=== PATIENT | female | born 1965 | race Two or more races ===

== ENCOUNTER 2023-09-29 18:44 | Emergency (ER) | payer MEDICAID, OTHER ==
[~2023-09-29] VITALS: Ht 152.4 cm; Wt 98.3 kg
[2023-09-29 19:04] VITALS: BP 104/66; PULSE 86; RESP 18; TEMP 98.9; O2SAT 98
[2023-09-29] MEDS: KETOROLAC TROMETH 60MG/2ML VIAL IM ONE (20:07)
== END 2023-09-29 21:58 | disposition home or self-care (01) ==
LOC: ER 18:48
DX: S13.4XXA Sprain of ligaments of cervical spine, initial encounter (principal); S16.1XXA Strain of muscle, fascia and tendon at neck level, initial encounter; Z88.5 Allergy status to narcotic agent; V89.2XXA Person injured in unspecified motor-vehicle accident, traffic, initial encounter; Y93.89 Activity, other specified; Y92.89 Other specified places as the place of occurrence of the external cause; Y99.8 Other external cause status
CPT/HCPCS: 72040; 96372; 99283; J1885

== ENCOUNTER 2023-12-20 15:15 | Inpatient (IN) | payer MEDICAID ==
[~2023-12-20] VITALS: Ht 149.9 cm; Wt 97.8 kg
[2023-12-20] MEDS: SODIUM CHLORIDE 0.9% 1,000 ML IV SCH (01:00)
--- NOTE | 2023-12-20 15:55 | ED.PDOC ---
GI ASSESSMENT HPI Comments HPI: Poor Historian. 58-year-old female presents to the emergency department for evaluation of three day history of left upper quadrant abdominal pain sharp intermittent nonradiating with associated nausea. No alleviating or precipitating factors. Past Medcial History: Diabetes, childhood asthma. Past Surgical History: Denies any REVIEW OF SYSTEMS: CONSTITUTIONAL: Denies acute: fever, diaphoresis, chills, generalized weakness. HEAD: Denies acute: headache, photophobia Eyes: Denies acute: Double vision, vision loss, eye pain, eye discharge. EARS: Denies acute: tinnitus, hearing loss, ear discharge, ear pain, THROAT: Denies acute: sore throat, swelling, difficulty swallowing , pain with swallowing, change in voice. NECK: Denies acute: neck pain, neck swelling, stiff neck. HEART: Denies acute : chest pain, palpitations, LUNGS: Denies acute: SOB, wheezing, cough, hemoptysis ABDOMEN: Denies acute: Vomiting, diarrhea, melena , hematemesis, hematochezia SKIN: Denies acute: rash, redness, lesions, itchiness. EXTREMITIES: Denies acute: calf pain, numbness, tingling, weakness, denies pain in extremity. Denies acute: Low back pain. Neuro: Denies acute: focal neurological deficit, motor or sensory focal neurological deficit, tremors, seizure like activity, confusion, dizziness, change in mental status, loss of bowel or bladder function, cauda equina like symptoms. : Denies acute: dysuria, hematuria, flank pain, increase in urinary frequency. PSYCH: Denies acute: hallucination, suicidal ideation, homicidal ideation. FEMALE: Denies acute: abnormal vaginal bleeding, foul odor, unusual discharge. PHYSICAL EXAM: General: no acute distress, awake and alert. Head: normocephalic, atraumatic. Neck: supple, trachea is midline, no swelling. Throat: Normal phonation. Eyes:, no erythema, no purulent discharge, no proptosis, no icterus. Heart: regular rate, regular rhythm, no significant murmur appreciated. Lungs: no apparent respiratory distress, Able to speak in full sentences. No wheezing, no rhonchi, no crackles. No stridors Clear to auscultation bilaterally. Abdomen: Left upper quadrant tender to palpation, non distended, soft, no guarding, no rebound, + bowel sounds. Obese. No rashes or lesions over the area of pain. Neuro: Awake, Alert, oriented to name, self, situation, follows commands GCS=15. Speech is normal. Skin: no petechia, no purpura, no cyanosis, non-pale, not jaundice. Lower extremities: --no - Pitting edema no deformity, no focal swelling, no calf TTP. Makes eye contact. moves all four extremities. Face: no apparent facial droop. No CVA tenderness to percussion bilaterally. Ambulating in the ED independently. Time Seen by MD: 15:52 Reviewed Notes: Nurses Notes, Allergies Allergies: Coded Allergies: Codeine (Verified Allergy, Unknown, 09/29/23) Home Meds Active Scripts Tramadol Hcl (Tramadol Hcl) 50 Mg Tab, 50 MG PO Q8HP PRN for 7 Days, #21 TAB Prov:SUSAN HOLMAN NP 12/21/23 Information Source: Patient Past Medical History PAST MEDICAL HISTORY: Denies Surgical History: Denies all surgeries PATTERN MOLDER History: No Pertinent PATTERN MOLDER History Family History Family History: Reviewed,noncontributory to illness Physical Exam General Appearance: Other (a) HEENT: Other (a) Neck: Other (a) Respiratory: Other (a) Cardiovascular: Other (a) Breast Exam: Other (a) Gastrointestinal: Other Genitalia: Other (a) Pelvic: Other (a) Rectal: Other (a) Extremities: Other (a) Neurologic: Other (a) Cerebellar Function: Other (a) Reflexes: Other (a) Skin: Other (a) Lymphatic: Other (a) Was a procedure done? Was a procedure done?: No GI differential Dx Differential Diagnosis: Other (DDX include Diverticulitis, colitis, gastroenteritis, acute abdomen, SBO, enteritis, constipation, volvulus, appendicitis, Gallbladder disease, choledocolithiasis, ascending cholangitis, pancreatitis, intraAbdominal mass/neoplasm, hepatitis, UTI, pylonephritis, kidney stone, aneurysm, dissection, Inflammatory bowel disease, gastroparesis, ischemic bowel, ovarian torsion, ovarian cyst/mass, tubo-ovarian abscess, PID, STD.) X-Ray, Labs, Meds, VS Vital Signs Date Time Temp Pulse Resp B/P (MAP) Pulse Ox O2 Delivery O2 Flow Rate FiO2 12/20/23 17:49 98.1 73 16 160/89 (112) 98 98.1 12/20/23 17:49 73 16 160/89 (112) 98 12/20/23 17:49 73 16 98 Room Air 12/20/23 15:58 74 12/20/23 15:31 98.8 73 18 165/78 (107) 97 Lab Test 12/20/23 18:07 12/20/23 17:16 12/20/23 16:48 12/20/23 15:55 Range/Units Lactic Acid Level 1.6 3.1 *H 0.4-2.0 mmol/L Troponin I High Sensitivity 6 6 </=34 ng/L Urine Color Light-yellow Yellow Urine Clarity Clear Clear Urine pH 5.5 5.0-9.0 Urine Specific [place] 1.029 1.001-1.035 Urine Protein Negative Negative Urine Ketones Negative Negative Urine Blood Negative Negative /uL Urine Nitrite Negative Negative Urine Bilirubin Negative Negative Urine Urobilinogen Normal Negative mg/dL Urine Leukocyte Esterase Trace Negative /uL Urine RBC 2 0 - 4 /hpf Urine WBC 5 0 - 5 /hpf Urine Squamous Epithelial Cells Few <5 /hpf Urine Bacteria None seen None Seen /hpf Urine Mucus Few None Seen Urine Glucose 4+ H Normal mg/dL White Blood Count 10.9 H 4.4-10.8 10^3/uL Red Blood Count 4.50 4.0-5.20 10^6/uL Hemoglobin 13.2 12.2-16.2 g/dL Hematocrit 39.2 36.0-46.0 % Mean Corpuscular Volume 87.0 80.0-100.0 fL Mean Corpuscular Hemoglobin 29.3 28.0-32.0 pg Mean Corpuscular Hemoglobin Concent 33.7 32.0-36.0 g/dL Red Cell Distribution Width 13.7 11.8-14.3 % Platelet Count 207 140-450 10^3/uL Mean Platelet Volume 10.0 6.9-10.8 fL Neutrophils (%) (Auto) 61.6 37.0-80.0 % Lymphocytes (%) (Auto) 24.0 10.0-50.0 % Monocytes (%) (Auto) 5.8 0.0-12.0 % Eosinophils (%) (Auto) 7.3 H 0.0-7.0 % Basophils (%) (Auto) 1.3 0.0-2.0 % Neutrophils # (Auto) 6.8 1.6-8.6 10 ^3/uL Lymphocytes # (Auto) 2.6 0.4-5.4 10 ^3/uL Monocytes # (Auto) 0.6 0-1.3 10 ^3/uL Eosinophils # (Auto) 0.8 0-0.8 10 ^3/uL Basophils # (Auto) 0.1 0-0.2 10 ^3/uL Nucleated Red Blood Cells 0.0 % Sodium Level 138 136-145 mmol/L Potassium Level 4.1 3.5-5.1 mmol/L Chloride Level 109 H 98-107 mmol/L Carbon Dioxide Level 24 20-31 mmol/L Anion Gap 5 5-15 Blood Urea Nitrogen 13 9-23 mg/dL Creatinine 0.79 0.550-1.02 mg/dL Glomerular Filtration Rate Calc 87 >90 mL/min BUN/Creatinine Ratio 16.5 10.0-20.0 Serum Glucose 287 H 74-106 mg/dL Hemoglobin A1c 7.7 H <5.7 % A1C Calcium Level 9.3 8.7-10.4 mg/dL Total Bilirubin 0.5 0.2-1.0 mg/dL Aspartate Amino Transferase (AST) 10 L 13-40 U/L Alanine Aminotransferase (ALT) 10 7-40 U/L Alkaline Phosphatase 163 H 46-116 U/L Total Protein 7.7 5.7-8.2 g/dL Albumin 4.3 3.2-4.8 g/dL Lipase 32 12-53 U/L Test 12/20/23 15:52 Range/Units POC Glucose 285 H 70-106 mg/dl Microbiology Date/Time Source Procedure Growth Status 12/20/23 16:48 Voided Urine Urine Culture - Final Staphylococcus aureus Complete [facility] [id number] [place] [address] Ph: [phone] DIAGNOSTIC IMAGING Diagnostic Imaging Report : [id number] Signed PATIENT: SANDOVAL MATA ACCT: [id number] UNIT: [id number] : 1965 LOC: ER ROOM / BED: / AGE / SEX: 58 / F ADM STATUS: REG ER SERVICE [id number] ORDERING PHYSICIAN: WAI VALDES DO PROCEDURE(s): ABPL - CT AB PEL WO CON-NO ORAL OR IV REASON: LUQ pain ORDER NUMBER(s): [id number], ACCESSION NUMBER(s): [id number] Exam: CT CT AB PEL WO CON-NO ORAL OR IV History: LUQ pain Comparison Study: None Technique: Multidetector spiral CT of the abdomen and pelvis was performed from lung bases to pubic symphysis. Imaging was performed without IV contrast. Axial, coronal and sagittal multiplanar reformats were obtained from the axial data set by the technologist. Radiation dose : Abdomen/Pelvis: CTDIvol 24.52 mGy, DLP 1321.13 mGy*cm. Findings: Evaluation of solid organs is limited due to lack of intravenous contrast use. Lung Bases: No acute or significant lung base finding. Normal heart size. No pleural or pericardial effusion. Liver: The liver is normal in size. No focal lesions. Gallbladder and biliary Tree: Unremarkable Spleen: Unremarkable Pancreas: There is a mass in the tail of the pancreas measuring up to 23mm. Adrenal Glands: Unremarkable Kidneys: There is a right renal cystic lesion measuring up to 31 mm. No hydronephrosis or nephrolithiasis. Left kidney appears unremarkable. Bladder: Grossly unremarkable for degree of distention. Bowel: The stomach is grossly normal in appearance. Small bowel and colon are normal in caliber and distribution. The appendix is not visualized; however, no secondary findings of acute appendicitis identified. Ascites: Absent Lymphadenopathy: No mesenteric, retroperitoneal or periportal lymphadenopathy. Abdominal wall and Mesentery: Unremarkable. Vasculature: The visualized abdominal aorta is normal in size and caliber. Evaluation of abdominal and pelvic vessels is limited due to lack of intravenous contrast. Pelvic Organs: Unremarkable Musculoskeletal: No aggressive focal bony lesions, acute fractures or dislocation. IMPRESSION: 1. No acute abdominal or pelvic findings. Mass in the region of the tail of the pancreas measuring up to 23 mm could represent a splenule or pancreatic mass. Right renal cystic lesion measuring up to 31 mm. These both could be evaluated with CT or MRI of the abdomen with contrast. Radiation optimization: All CT scans at this facility use at least one of these dose optimization techniques: Automated exposure control mA and/or kV adjustment per patient size (includes targeted exams where dose is matched to clinical indication) or iterative reconstruction. HS:Y ATED BY: WALTER MEDRANO MD DICTATED DATE/TIME: 12/20/231651 SIGNED BY: WALTER MEDRANO MD SIGNED DATE/TIME: 12/20/231651 CC: [place] [id number] Ph: [phone] DIAGNOSTIC IMAGING Diagnostic Imaging Report : [id number] Signed PATIENT: SANDOVAL MATA ACCT: [id number] UNIT: [id number] : 1965 LOC: ER ROOM / BED: / AGE / SEX: 58 / F ADM STATUS: REG ER SERVICE 155 ORDERING PHYSICIAN: WAI VALDES DO PROCEDURE(s): ABPL - CT AB PEL WO CON-NO ORAL OR IV REASON: LUQ pain ORDER NUMBER(s): [id number], ACCESSION NUMBER(s): [id number] Exam: CT CT AB PEL WO CON-NO ORAL OR IV History: LUQ pain Comparison Study: None Technique: Multidetector spiral CT of the abdomen and pelvis was performed from lung bases to pubic symphysis. Imaging was performed without IV contrast. Axial, coronal and sagittal multiplanar reformats were obtained from the axial data set by the technologist. Radiation dose : Abdomen/Pelvis: CTDIvol 24.52 mGy, DLP 1321.13 mGy*cm. Findings: Evaluation of solid organs is limited due to lack of intravenous contrast use. Lung Bases: No acute or significant lung base finding. Normal heart size. No pleural or pericardial effusion. Liver: The liver is normal in size. No focal lesions. Gallbladder and biliary Tree: Unremarkable Spleen: Unremarkable Pancreas: There is a mass in the tail of the pancreas measuring up to 23mm. Adrenal Glands: Unremarkable Kidneys: There is a right renal cystic lesion measuring up to 31 mm. No hydronephrosis or nephrolithiasis. Left kidney appears unremarkable. Bladder: Grossly unremarkable for degree of distention. Bowel: The stomach is grossly normal in appearance. Small bowel and colon are normal in caliber and distribution. The appendix is not visualized; however, no secondary findings of acute appendicitis identified. Ascites: Absent Lymphadenopathy: No mesenteric, retroperitoneal or periportal lymphadenopathy. Abdominal wall and Mesentery: Unremarkable. Vasculature: The visualized abdominal aorta is normal in size and caliber. Evaluation of abdominal and pelvic vessels is limited due to lack of intravenous contrast. Pelvic Organs: Unremarkable Musculoskeletal: No aggressive focal bony lesions, acute fractures or dislocation. IMPRESSION: 1. No acute abdominal or pelvic findings. Mass in the region of the tail of the pancreas measuring up to 23 mm could represent a splenule or pancreatic mass. Right renal cystic lesion measuring up to 31 mm. These both could be evaluated with CT or MRI of the abdomen with contrast. Radiation optimization: All CT scans at this facility use at least one of these dose optimization techniques: Automated exposure control mA and/or kV adjustment per patient size (includes targeted exams where dose is matched to clinical indication) or iterative reconstruction. HS:Y ATED BY: WALTER MEDRANO MD DICTATED DATE/TIME: 12/20/231651 SIGNED BY: WALTER MEDRANO MD SIGNED DATE/TIME: 12/20/231651 CC: [place] [id number] Ph: [phone] DIAGNOSTIC IMAGING Diagnostic Imaging Report : [id number] Signed PATIENT: SANDOVAL MATA ACCT: [id number] UNIT: [id number] : 1965 [facility]GE / SEX: 58 / F ADM STATUS: ADM IN SERVICE 99 ORDERING PHYSICIAN: ALEXANDREA FISHER RESIDENT PROCEDURE(s): BLDVT - BiLat Lower DVT REASON: To rule out DVT ORDER NUMBER(s): [id number], ACCESSION NUMBER(s): [id number] CLINICAL HISTORY: To rule out DVT history of DVT TECHNIQUE: Color and duplex doppler imaging of the bilateral lower extremity veins was performed. Vessel compression if possible was also performed. WID: COMPARISON: None FINDINGS: Right Lower Extremity: Right common femoral vein: Normal compressibility and flow. Right femoral vein: Normal compressibility and flow. Right popliteal vein: Normal compressibility and flow. Proximal calf veins are normally compressible. Left Lower Extremity: Left common femoral vein: Normal compressibility and flow. Left femoral vein: Normal compressibility and flow. Left popliteal vein: Normal compressibility and flow. Proximal calf veins are normally compressible. IMPRESSION: NO SONOGRAPHIC EVIDENCE FOR DEEP VENOUS THROMBOSIS IN THE BILATERAL LOWER EXTREMITY VEINS. ATED BY: BRENDA SWAIN MD DICTATED DATE/TIME: 12/20/232311 SIGNED BY: BRENDA SWAIN MD SIGNED DATE/TIME: 12/20/232311 CC: Time of 1ST Reevaluation: 19:50 Reevaluation 1ST: Unchanged Patient Education/Counseling: Diagnosis, Treatment Family Education/Counseling: No Family Present Comments Patient presented with the above HPI.--abdominal pain----workup was initiated. patient was found with the above mentioned diagnosis. Patient was given: Benadryl, Solu-Medrol, hydrocodone, Zofran, normal saline fluid Patient ED course and VS have been stabilized. Patient has been reassessed in the ED and remained in a stable condition. patient was admitted to the medicine team for further evaluation and treatment of their presentation. All the reports of any imaging studies that were ordered by myself were reviewed by myself. Departure 1 Departure Time of Disposition: 19:51 Impression: Primary Impression: Abdominal pain Additional Impression: Pancreatic mass Disposition: ADMITTED INPATIENT Admit to: [facility] Condition: Guarded Additional Instructions: [place] [id number] Ph: [phone] DIAGNOSTIC IMAGING Diagnostic Imaging Report : [id number] Signed PATIENT: SANDOVAL MATA ACCT: [id number] UNIT: [id number] : 1965 LOC: ER ROOM / BED: / AGE / SEX: 58 / F ADM STATUS: REG ER SERVICE 0252 ORDERING PHYSICIAN: WAI VALDES DO PROCEDURE(s): ABPL - CT AB PEL WO CON-NO ORAL OR IV REASON: LUQ pain ORDER NUMBER(s): [id number], ACCESSION NUMBER(s): [id number] Exam: CT CT AB PEL WO CON-NO ORAL OR IV History: LUQ pain Comparison Study: None Technique: Multidetector spiral CT of the abdomen and pelvis was performed from lung bases to pubic symphysis. Imaging was performed without IV contrast. Axial, coronal and sagittal multiplanar reformats were obtained from the axial data set by the technologist. Radiation dose : Abdomen/Pelvis: CTDIvol 24.52 mGy, DLP 1321.13 mGy*cm. Findings: Evaluation of solid organs is limited due to lack of intravenous contrast use. Lung Bases: No acute or significant lung base finding. Normal heart size. No pleural or pericardial effusion. Liver: The liver is normal in size. No focal lesions. Gallbladder and biliary Tree: Unremarkable Spleen: Unremarkable Pancreas: There is a mass in the tail of the pancreas measuring up to 23mm. Adrenal Glands: Unremarkable Kidneys: There is a right renal cystic lesion measuring up to 31 mm. No hydronephrosis or nephrolithiasis. Left kidney appears unremarkable. Bladder: Grossly unremarkable for degree of distention. Bowel: The stomach is grossly normal in appearance. Small bowel and colon are normal in caliber and distribution. The appendix is not visualized; however, no secondary findings of acute appendicitis identified. Ascites: Absent Lymphadenopathy: No mesenteric, retroperitoneal or periportal lymphadenopathy. Abdominal wall and Mesentery: Unremarkable. Vasculature: The visualized abdominal aorta is normal in size and caliber. Evaluation of abdominal and pelvic vessels is limited due to lack of intravenous contrast. Pelvic Organs: Unremarkable Musculoskeletal: No aggressive focal bony lesions, acute fractures or dislocation. IMPRESSION: 1. No acute abdominal or pelvic findings. Mass in the region of the tail of the pancreas measuring up to 23 mm could represent a splenule or pancreatic mass. Right renal cystic lesion measuring up to 31 mm. These both could be evaluated w ith CT or MRI of the abdomen with contrast. Radiation optimization: All CT scans at this facility use at least one of these dose optimization techniques: Automated exposure control mA and/or kV adjustment per patient size (includes targeted exams where dose is matched to clinical indication) or iterative reconstruction. HS:Y ATED BY: WALTER MEDRANO MD DICTATED DATE/TIME: 12/20/231651 SIGNED BY: WALTER MEDRANO MD SIGNED DATE/TIME: 12/20/231651 CC: e-Prescriptions Tramadol Hcl (Tramadol Hcl) 50 Mg Tab 50 MG PO Q8HP PRN for 7 Days, #21 TAB Prov: SUSAN HOLMAN [employer] 12/21/23 Discharged With: Self Critical Care Note Critical Care Time?: No Stability Stability form required: No Heart Score Heart Score: Heart Score Response (Comments) Value History N/A 0 EKG N/A 0 Age N/A 0 Risk Factors N/A 0 Troponin N/A 0 Total 0 WAI VALDES DO Dec 20, 2023 15:55
--- NOTE | 2023-12-20 16:00 | ECG ---
[facility] Test Date: 2023-12-20 Test Time: 15:58:18 Pat Name: SANDOVAL MATA Department: ER Room: Gender: F [employer]etic Sales: SEDRICK : 1965 Requested By: WAI VALDES Order Number: [id number] Reading MD: Andrew Trejo Measurements Intervals [place] Rate: 74 P: 52 OK: 134 QRS: 44 QRSD: 84 T: 46 QT: 420 QTc: 466 Interpretive Statements Sinus rhythm RSR' in V1 or V2, right VCD or RVH Baseline wander in lead(s) II Electronically Signed On 12-20-2023 16:30:18 PDT by Andrew Trejo Please click the below link to view image of tracing.
[2023-12-20 16:46] LABS: Basophils # (auto) 0.1 10 ^3/uL (0-0.2); Basophils % (auto) 1.3 % (0.0-2.0); Eosinophils # (auto) 0.8 10 ^3/uL (0-0.8); Eosinophils % (auto) 7.3 % (0.0-7.0); Hematocrit 39.2 % (36.0-46.0); Hemoglobin 13.2 g/dL (12.2-16.2); Lymphocytes # (auto) 2.6 10 ^3/uL (0.4-5.4); Mean Corpuscular Hemoglobin 29.3 pg (28.0-32.0); Mean Corpuscular Hgb Conc. 33.7 g/dL (32.0-36.0); Monocytes # (auto) 0.6 10 ^3/uL (0-1.3); Monocytes % (auto) 5.8 % (0.0-12.0); Neutrophils # (auto) 6.8 10 ^3/uL (1.6-8.6); Neutrophils % (auto) 61.6 % (37.0-80.0); Platelet Count (auto) 207 10^3/uL (140-450); Red Cell Distribution Width 13.7 % (11.8-14.3); White Blood Cell 10.9 10^3/uL (4.4-10.8)
[2023-12-20 16:48] LABS: Urine Bacteria None Seen /hpf (None Seen)
--- NOTE | 2023-12-20 16:54 | DVH ---
Exam: CT CT AB PEL WO CON-NO ORAL OR IV History: LUQ pain Comparison Study: None Technique: Multidetector spiral CT of the abdomen and pelvis was performed from lung bases to pubic symphysis. Imaging was performed without IV contrast. Axial, coronal and sagittal multiplanar reform ats were obtained from the axial data set by the technologist. Radiation dose : Abdomen/Pelvis: CTDIvol 24.52 mGy, DLP 1321.13 mGy*cm. Findings: Evaluation of solid organs is limited due to lack of intravenous contrast use. Lung Bases: No acute or significant lung base finding. Normal heart size. No pleural or pericardial effusion. Liver: The liver is normal in size. No focal lesions. Gallbladder and biliary Tree: Unremarkable Spleen: Unremarkable Pancreas: There is a mass in the tail of the pancreas measuring up to 23mm. Adrenal Glands: Unremarkable Kidneys: There is a right renal cystic lesion measuring up to 31 mm. No hydronephrosis or nephrolithi asis. Left kidney appears unremarkable. Bladder: Grossly unremarkable for degree of distention. Bowel: The stomach is grossly normal in appearance. Small bowel and colon are normal in caliber and d istribution. The appendix is not visualized; however, no secondary findings of acute appendicitis id entified. Ascites: Absent Lymphadenopathy: No mesenteric, retroperitoneal or periportal lymphadenopathy. Abdominal wall and Mesentery: Unremarkable. Vasculature: The visualized abdominal aorta is normal in size and caliber. Evaluation of abdominal a nd pelvic vessels is limited due to lack of intravenous contrast. Pelvic Organs: Unremarkable Musculoskeletal: No aggressive focal bony lesions, acute fractures or dislocation. IMPRESSION: 1. No acute abdominal or pelvic findings. Mass in the region of the tail of the pancreas measuring up to 23 mm could represent a splenule or pancreatic mass. Right renal cystic lesion measuring up to 31 mm. These both could be evaluated with CT or MRI of the abdomen with contrast. Radiation optimization: All CT scans at this facility use at least one of these dose optimization debi hniques: Automated exposure control mA and/or kV adjustment per patient size (includes targeted exams where dose is matched to clinical indication) or iterative reconstruction. HS:Y
[2023-12-20 17:13] LABS: Alanine Aminotransferase 10 U/L (7-40); Albumin 4.3 g/dL (3.2-4.8); Alkaline Phosphatase 163 U/L (46-116); Anion Gap 5 (5-15); Aspartate Aminotransferase 10 U/L (13-40); BUN/Creatinine Ratio 16.5 (10.0-20.0); Blood Urea Nitrogen 13 mg/dL (9-23); Calcium 9.3 mg/dL (8.7-10.4); Carbon Dioxide 24 mmol/L (20-31); Chloride 109 mmol/L (98-107); Glucose 287 mg/dL (74-106); Lipase 32 U/L (12-53); Potassium 4.1 mmol/L (3.5-5.1); Sodium 138 mmol/L (136-145)
[2023-12-20 17:14] LABS: Bilirubin, Total 0.5 mg/dL (0.2-1.0); Total Protein 7.7 g/dL (5.7-8.2)
[2023-12-20 17:21] LABS: Lactic Acid w/Reflex 3.1 mmol/L (0.4-2.0)
[2023-12-20 17:38] LABS: Urine Blood Negative /uL (Negative); Urine Clarity Clear (Clear); Urine Color Light-Yellow (Yellow); Urine Mucus FEW (None Seen); Urine Protein, UAD Negative (Negative); Urine Specific Gravity 1.029 (1.001-1.035); Urine Urobilinogen Normal (Negative); Urine WBC 5 /hpf (0 - 5); Urine pH 5.5 (5.0-9.0)
[2023-12-20] MEDS: ONDANSETRON HCL 4 MG/2 ML VIAL IV ONE (18:06)
[2023-12-20] MEDS: SODIUM CHLORIDE 0.9% 1,000 ML IV ONE (18:06)
[2023-12-20] MEDS: HYDROcodone-ACET 5/325MG TAB PO ONE (18:33)
[2023-12-20] MEDS: methylPREDNISolone SOD SUCC 125 MG/2 ML VL IV ONE (19:29)
[2023-12-20] MEDS: diphenhdrAMINE HCL 50 MG/1 ML VL IV ONE (19:29)
[2023-12-20] MEDS ORDERED: ACETAMINOPHEN 325 MG TAB PO PRN (22:00)
[2023-12-20] MEDS ORDERED: ONDANSETRON HCL 4 MG/2 ML VIAL IV PRN (22:00)
[2023-12-20] MEDS ORDERED: NITROGLYCERIN 0.4 MG SL TAB SL PRN (22:00)
[2023-12-20] MEDS ORDERED: MORPHINE SULFATE INJ 2 MG/ml SYRG IV PRN (22:00)
[2023-12-20] MEDS ORDERED: DEXTROSE (50%) 50ML SYRG IV PRN (22:00)
--- NOTE | 2023-12-20 22:05 | DVHHPRES ---
History of Present Illness Resident Creating Document: ALEXANDREA FISHER RESIDENT History of Present Illness This is a 58 years old female with past medical history of type 2 diabetes mellitus, DVT presented to the ED with a chief complaint of left upper quadrant abdominal pain nausea and vomiting for last 2 days. According to the patient the pain was going on intermittently for last 1 month which is colicky in nature 8/10 radiate to the back with no significant aggravating or relieving factors and associated with nausea and vomiting. The patient is allergic to codeine and recently discovered an allergy to [place]. The patient is unsure of any other allergies and expresses concern about taking medications due to potential allergic reactions. The patient denies any fever, chills, burning during urination, changes in bowel habits, or blood in the stool. PCP: Dr. Thong Albarado Endocrine: Diabetes Past Medical History Type 2 diabetes mellitus, DVT Past Surgical History: None Family History: None Smoke: No ALCOHOL: none Drugs: None Lives: with Family Review of Systems Constitutional: No: Fever, Chills, Sweats, Weakness, Malaise, Other Eyes: No: Pain, Vision change, Conjunctivae inflammation, Eyelid inflammation, Other, Redness ENT: No: Ear pain, Ear discharge, Nose pain, Nose discharge, Nose congestion, Mouth pain, Mouth swelling, Throat pain, Throat swelling, Other Respiratory: No: Cough, Dry, Shortness of breath, SOB with excertion, Wheezing, Hemoptysis, Pleuritic Pain, Sputum, Wheezing, Other Cardiovascular: No: Chest Pain, Palpitations, Orthopnea, Paroxysmal Noc. Dyspnea, Edema, Lt Headedness, Other Gastrointestinal: Nausea, Vomiting, Abdominal Pain; No: Diarrhea, Constipation, Melena, Hematochezia, Other Genitourinary: No Dysuria, No Frequency, No Incontinence, No Hematuria, No Retention, No Other Musculoskeletal: No: other, neck pain, shoulder pain, arm pain, back pain, hand pain, leg pain, foot pain Skin: No: Rash, Lesions, Jaundice, Bruising, Other Neurological: No: Weakness, Numbness, Incoordination, Change in speech, Confusion, Seizures, Other Allergies: Coded Allergies: Codeine (Verified Allergy, Unknown, 09/29/23) Exam Vital Signs Vital Signs Date Time Temp Pulse Resp B/P (MAP) Pulse Ox O2 Delivery O2 Flow Rate FiO2 12/20/23 17:49 98.1 73 16 160/89 (112) 98 98.1 12/20/23 17:49 Room Air General Appearance: Alert, Oriented X3, Cooperative, mild distress HEENT: Atraumatic, PERRLA, EOMI, Mucous membr. moist/pink Respiratory: Clear to auscultation, Normal air movement Cardiovascular: Regular rate, Normal S1, Normal S2, No murmurs Abdominal: Normal bowel sounds, Soft, No tenderness, No hepatospenomegaly, No masses Extremities: No clubbing, No cyanosis, No edema, Normal pulses, No tenderness/swelling Skin: No rashes, No breakdown, No significant lesion Neuro: Normal gait, Normal speech, Strength at 5/5 X4 ext, Normal tone, Sensation intact, Other (Grosssly intact cranial nerves) Psych/Mental Status: Mental status NL, Mood NL Labs/Xrays Labs Test 12/20/23 18:07 12/20/23 17:16 12/20/23 16:48 12/20/23 15:55 Range/Units Lactic Acid Level 1.6 0.4-2.0 mmol/L Troponin I High Sensitivity 6 </=34 ng/L Urine Color Light-yellow Yellow Urine Clarity Clear Clear Urine pH 5.5 5.0-9.0 Urine Specific [place] 1.029 1.001-1.035 Urine Protein Negative Negative Urine Ketones Negative Negative Urine Blood Negative Negative /uL Urine Nitrite Negative Negative Urine Bilirubin Negative Negative Urine Urobilinogen Normal Negative mg/dL Urine Leukocyte Esterase Trace Negative /uL Urine RBC 2 0 - 4 /hpf Urine WBC 5 0 - 5 /hpf Urine Squamous Epithelial Cells Few <5 /hpf Urine Bacteria None seen None Seen /hpf Urine Mucus Few None Seen Urine Glucose 4+ H Normal mg/dL White Blood Count 10.9 H 4.4-10.8 10^3/uL Red Blood Count 4.50 4.0-5.20 10^6/uL Hemoglobin 13.2 12.2-16.2 g/dL Hematocrit 39.2 36.0-46.0 % Mean Corpuscular Volume 87.0 80.0-100.0 fL Mean Corpuscular Hemoglobin 29.3 28.0-32.0 pg Mean Corpuscular Hemoglobin Concent 33.7 32.0-36.0 g/dL Red Cell Distribution Width 13.7 11.8-14.3 % Platelet Count 207 140-450 10^3/uL Mean Platelet Volume 10.0 6.9-10.8 fL Neutrophils (%) (Auto) 61.6 37.0-80.0 % Lymphocytes (%) (Auto) 24.0 10.0-50.0 % Monocytes (%) (Auto) 5.8 0.0-12.0 % Eosinophils (%) (Auto) 7.3 H 0.0-7.0 % Basophils (%) (Auto) 1.3 0.0-2.0 % Neutrophils # (Auto) 6.8 1.6-8.6 10 ^3/uL Lymphocytes # (Auto) 2.6 0.4-5.4 10 ^3/uL Monocytes # (Auto) 0.6 0-1.3 10 ^3/uL Eosinophils # (Auto) 0.8 0-0.8 10 ^3/uL Basophils # (Auto) 0.1 0-0.2 10 ^3/uL Nucleated Red Blood Cells 0.0 % Sodium Level 138 136-145 mmol/L Potassium Level 4.1 3.5-5.1 mmol/L Chloride Level 109 H 98-107 mmol/L Carbon Dioxide Level 24 20-31 mmol/L Anion Gap 5 5-15 Blood Urea Nitrogen 13 9-23 mg/dL Creatinine 0.79 0.550-1.02 mg/dL Glomerular Filtration Rate Calc 87 >90 mL/min BUN/Creatinine Ratio 16.5 10.0-20.0 Serum Glucose 287 H 74-106 mg/dL Calcium Level 9.3 8.7-10.4 mg/dL Total Bilirubin 0.5 0.2-1.0 mg/dL Aspartate Amino Transferase (AST) 10 L 13-40 U/L Alanine Aminotransferase (ALT) 10 7-40 U/L Alkaline Phosphatase 163 H 46-116 U/L Total Protein 7.7 5.7-8.2 g/dL Albumin 4.3 3.2-4.8 g/dL Lipase 32 12-53 U/L Test 12/20/23 15:52 Range/Units POC Glucose 285 H 70-106 mg/dl Assessment/Plan Assessment/Plan Assessment and plan: # Intractable abdominal pain with vomiting - lactic acid was 3.1 and mildly elevated WBC count on admission - Lipase is normal - normal IV normal saline at 75 mL/hour - clear liquid diet - IV morphine 1 mg q.4 p.r.n. - IV ondansetron 4 mg q.4 p.r.n. # Possible pancreatic mass - CT scan of the abdomen pelvis revealed mass in the region of the tail of the pancreas measuring up to 23 mm - Ordered CA 19-9 # Uncontrolled type 2 diabetes mellitus, hemoglobin A1c 7.7 - Moderate sliding scale of the insulin - Pipe Foreman patient regarding healthy low carb diet, lifestyle modification and physical exercise # Possible right renal cyst without hydronephrosis - CT scan of the abdomen pelvis demonstrated right renal cyst measuring up to 30 mm - Outpatient follow up with the Nephrology. # PUD prophylaxis - Protonix 40 mg p.o. daily # DVT prophylaxis - Lovenox 40 mg sc daily Goal of care discussed with the patient for more than 23 minutes full code Plan of treatment discussed with Dr. Amador Plan discussed with: Patient, Other My Orders Orders - ALEXANDREA FISHER RESIDENT Procedure Category Date Status Time Admit ADMIT 12/20/23 Transmitted 22:00 Allergies DARRYL 12/20/23 Transmitted 22:00 Code Status CODE 12/20/23 Transmitted 22:00 0.9% Ns 1000 Ml PHA 12/20/23 Transmitted 22:00 Acetaminophen Tablet PHA 12/20/23 Transmitted (Tylenol Tablet) 22:00 Ondansetron Hcl PHA 12/20/23 Transmitted (Zofran) 22:00 Enoxaparin Sodium PHA 12/21/23 Transmitted (Lovenox) 10:00 Complete Blood Count LAB 12/21/23 Verified 04:00 Comprehensive LAB 12/21/23 Verified Metabolic Panel 04:00 Clear Liq Diet DIET 12/21/23 Transmitted Breakfast Nitroglycerin PHA 12/20/23 Transmitted Sublingual (Ntrostat 22:00 Morphine Sulfate PHA 12/20/23 Transmitted Injection 22:00 Oxygen By Nasal RT 12/20/23 Transmitted Cannula 22:00 Stat Ekg For Chest [facility] 12/20/23 Transmitted Pain 22:00 Notify Of Changes [facility] 12/20/23 Transmitted From Base 22:00 Erector Operator For [facility] 12/20/23 Transmitted 24 Hours 22:00 Emergency Dysrhythmia [facility] 12/20/23 Transmitted Protocol 22:00 Rhythm Strips Once [facility] 12/20/23 Transmitted Every Shift 22:00 Hemoglobin A1c LAB 12/20/23 Transmitted 22:00 Glucose Blood PHA 12/20/23 Transmitted (Accu-Chek Comfort 22:00 Bedtime Insulin Scale PHA 12/20/23 Transmitted 22:00 Moderate Insulin Ss PHA 12/21/23 Transmitted 07:00 Dextrose 50% Syringe PHA 12/20/23 Transmitted 22:00 Bilat Lower Dvt US 12/20/23 Transmitted 22:00 Date of Service: Dec 20, 2023 Billing Provider: LIANNE AMADOR MD Common Visit Codes: [id number] INP/OBS CARE (HIGH) ALEXANDREA FISHER RESIDENT Dec 20, 2023 22:05 LIANNE AMADOR MD Dec 21, 2023 09:50
[2023-12-20] MEDS: ACCU-CHEK COMFORT CURVE STRIP VI SCH (22:47)
[2023-12-20] MEDS: InsuLIN REG 1unit/0.01ml Soln (100units/ml) SC SCH (22:48)
--- NOTE | 2023-12-20 23:14 | DVH ---
CLINICAL HISTORY: To rule out DVT history of DVT TECHNIQUE: Color and duplex doppler imaging of the bilateral lower extremity veins was performed. Ves ambika compression if possible was also performed. WID: COMPARISON: None FINDINGS: Right Lower Extremity: Right common femoral vein: Normal compressibility and flow. Right femoral vein: Normal compressibility and flow. Right popliteal vein: Normal compressibility and flow. Proximal calf veins are normally compressible. Left Lower Extremity: Left common femoral vein: Normal compressibility and flow. Left femoral vein: Normal compressibility and flow. Left popliteal vein: Normal compressibility and flow. Proximal calf veins are normally compressible. IMPRESSION: NO SONOGRAPHIC EVIDENCE FOR DEEP VENOUS THROMBOSIS IN THE BILATERAL LOWER EXTREMITY VEINS.
[2023-12-21] MEDS ORDERED: MORPHINE SULFATE INJ 2 MG/ml SYRG IV PRN (00:15)
[2023-12-21 01:00] VITALS: PULSE 73; RESP 16; O2SAT 97
[2023-12-21 03:51] LABS: Basophils # (auto) 0 10 ^3/uL (0-0.2); Basophils % (auto) 0.2 % (0.0-2.0); Eosinophils # (auto) 0 10 ^3/uL (0-0.8); Eosinophils % (auto) 0.2 % (0.0-7.0); Hemoglobin 13.9 g/dL (12.2-16.2); Lymphocytes # (auto) 1.1 10 ^3/uL (0.4-5.4); Lymphocytes % (auto) 8.5 % (10.0-50.0); Mean Corpuscular Hemoglobin 29.1 pg (28.0-32.0); Mean Corpuscular Hgb Conc. 32.3 g/dL (32.0-36.0); Mean Corpuscular Volume 89.9 fL (80.0-100.0); Monocytes # (auto) 0.1 10 ^3/uL (0-1.3); Monocytes % (auto) 0.8 % (0.0-12.0); Neutrophils # (auto) 11.6 10 ^3/uL (1.6-8.6); Neutrophils % (auto) 90.3 % (37.0-80.0); Nucleated Red Blood Cells % 0.1 %; Platelet Count (auto) 106 10^3/uL (140-450); Red Blood Cells 4.78 10^6/uL (4.0-5.20); White Blood Cell 12.8 10^3/uL (4.4-10.8)
[2023-12-21 04:12] LABS: Alanine Aminotransferase 10 U/L (7-40); Albumin 4.1 g/dL (3.2-4.8); Alkaline Phosphatase 149 U/L (46-116); Anion Gap 5 (5-15); Aspartate Aminotransferase 13 U/L (13-40); BUN/Creatinine Ratio 12.7 (10.0-20.0); Bilirubin, Total 0.5 mg/dL (0.2-1.0); Blood Urea Nitrogen 8 mg/dL (9-23); Carbon Dioxide 19 mmol/L (20-31); Chloride 111 mmol/L (98-107); Glucose 209 mg/dL (74-106); Potassium 3.9 mmol/L (3.5-5.1); Sodium 135 mmol/L (136-145); Total Protein 7.7 g/dL (5.7-8.2)
[2023-12-21] MEDS: PANTOPRAZOLE 40 MG TAB PO SCH (05:30)
[2023-12-21] MEDS: InsuLIN REG 1unit/0.01ml Soln (100units/ml) SC SCH (06:05)
[2023-12-21] MEDS: ENOXAPARIN SOD 40 MG/0.4 ML SYRINGE SC SCH (10:00)
[2023-12-21 11:02] VITALS: PULSE 70; RESP 18; O2SAT 98
--- NOTE | 2023-12-21 11:29 | DVH ---
CHEST RADIOGRAPH Indication:Left side chest pain Technique: Single frontal view of the chest was obtained Comparison: None FINDINGS: Lines and Tubes: None Lungs: No focal consolidation. Pleura: No effusion. No pneumothorax. Cardiomediastinal contours: Unremarkable Bones: No acute osseous abnormality. IMPRESSION: No acute cardiopulmonary disease.
[2023-12-21] MEDS ORDERED: TRAM50TA2 PO ×2 (12:09→12:41)
[2023-12-21 14:00] VITALS: BP 154/70; PULSE 101; RESP 16; TEMP 97.6; O2SAT 95
--- NOTE | 2023-12-21 18:56 | DVHDSRES ---
Discharge Summary Date of Admission Resident Creating Document: KIMBERLY DOLL Dec 20, 2023 at 22:00 Date of Discharge: Dec 21, 2023 Admitting Diagnosis Intractable abdominal pain Labs/Diagnostic Data: Laboratory Results Test 12/21/23 11:36 12/21/23 03:23 12/20/23 18:07 12/20/23 17:16 POC Glucose 206 mg/dl (70-106) White Blood Count 12.8 10^3/uL (4.4-10.8) Red Blood Count 4.78 10^6/uL (4.0-5.20) Hemoglobin 13.9 g/dL (12.2-16.2) Hematocrit 43.0 % (36.0-46.0) Mean Corpuscular Volume 89.9 fL (80.0-100.0) Mean Corpuscular Hemoglobin 29.1 pg (28.0-32.0) Mean Corpuscular Hemoglobin Concent 32.3 g/dL (32.0-36.0) Red Cell Distribution Width 14.0 % (11.8-14.3) Platelet Count 106 10^3/uL (140-450) Mean Platelet Volume 10.9 fL (6.9-10.8) Neutrophils (%) (Auto) 90.3 % (37.0-80.0) Lymphocytes (%) (Auto) 8.5 % (10.0-50.0) Monocytes (%) (Auto) 0.8 % (0.0-12.0) Eosinophils (%) (Auto) 0.2 % (0.0-7.0) Basophils (%) (Auto) 0.2 % (0.0-2.0) Neutrophils # (Auto) 11.6 10 ^3/uL (1.6-8.6) Lymphocytes # (Auto) 1.1 10 ^3/uL (0.4-5.4) Monocytes # (Auto) 0.1 10 ^3/uL (0-1.3) Eosinophils # (Auto) 0 10 ^3/uL (0-0.8) Basophils # (Auto) 0 10 ^3/uL (0-0.2) Nucleated Red Blood Cells 0.1 % Sodium Level 135 mmol/L (136-145) Potassium Level 3.9 mmol/L (3.5-5.1) Chloride Level 111 mmol/L (98-107) Carbon Dioxide Level 19 mmol/L (20-31) Anion Gap 5 (5-15) Blood Urea Nitrogen 8 mg/dL (9-23) Creatinine 0.63 mg/dL (0.550-1.02) Glomerular Filtration Rate Calc 103 mL/min (>90) BUN/Creatinine Ratio 12.7 (10.0-20.0) Serum Glucose 209 mg/dL (74-106) Calcium Level 9.0 mg/dL (8.7-10.4) Total Bilirubin 0.5 mg/dL (0.2-1.0) Aspartate Amino Transferase (AST) 13 U/L (13-40) Alanine Aminotransferase (ALT) 10 U/L (7-40) Alkaline Phosphatase 149 U/L (46-116) Total Protein 7.7 g/dL (5.7-8.2) Albumin 4.1 g/dL (3.2-4.8) Lactic Acid Level 1.6 mmol/L (0.4-2.0) Troponin I High Sensitivity 6 ng/L (</=34) Test 12/20/23 16:48 12/20/23 15:55 Urine Color Light-yellow (Yellow) Urine Clarity Clear (Clear) Urine pH 5.5 (5.0-9.0) Urine Specific [place] 1.029 (1.001-1.035) Urine Protein Negative (Negative) Urine Ketones Negative (Negative) Urine Blood Negative /uL (Negative) Urine Nitrite Negative (Negative) Urine Bilirubin Negative (Negative) Urine Urobilinogen Normal mg/dL (Negative) Urine Leukocyte Esterase Trace /uL (Negative) Urine RBC 2 /hpf (0 - 4) Urine WBC 5 /hpf (0 - 5) Urine Squamous Epithelial Cells Few /hpf (<5) Urine Bacteria None seen /hpf (None Seen) Urine Mucus Few (None Seen) Urine Glucose 4+ mg/dL (Normal) Hemoglobin A1c 7.7 % A1C (<5.7) Lipase 32 U/L (12-53) Other Laboratory Tests 12/21/23 03:23 Brief Hx & Hospital Course: This is a 58-year-old female with a past medical history of type 2 diabetes mellitus and DVT, who presented to the ED with a chief complaint of left upper quadrant abdominal pain, nausea, and vomiting for the last 2 days. According to the patient, the pain has been intermittent for the last month, colicky in nature, rated 8/10, and radiating to the back with no significant aggravating or relieving factors. It is associated with nausea and vomiting. The patient is allergic to codeine and recently discovered an allergy to [place]. She is unsure of any other allergies and expresses concern about taking medications due to potential allergic reactions. The patient denies any fever, chills, burning during urination, changes in bowel habits, or blood in the stool. PCP: Dr. Thong Albarado PMHx: Diabetes type 2, history of HHS, history of DVT PSHx: Noncontributory Family history: Noncontributory Social history: Lives with family, denies smoking, alcohol, and drug use Home medication: Insulin Allergic history: Codeine, [place] A chest x-ray was performed and was normal. Bilateral lower extremity ultrasounds were within normal limits. An abdominopelvic CT scan showed no acute abdominal or pelvic findings. A mass in the region of the tail of the pancreas measuring up to 23 mm could represent a splenule or pancreatic mass. A right renal cystic lesion measuring up to 31 mm was also noted. Both could be evaluated with a CT or MRI of the abdomen with contrast. On 12/21/2023, the patient was clinically and vitally stable, feeling better since admission, and had no active complaints. The discharge plan was discussed with the patient, and she was recommended to follow up with the discharge clinic within 1 week and also follow up with an MRI with contrast for the workup of the mass. Operations or Procedures [place] [address] Ph: [phone] DIAGNOSTIC IMAGING Diagnostic Imaging Report : [id number] Signed PATIENT: SANDOVAL MATA ACCT: [id number] UNIT: [id number] : 1965 LOC: OVERFLOW ROOM / BED: [facility] [place]-ER / A AGE / SEX: 58 / F ADM STATUS: ADM IN SERVICE 99 ORDERING PHYSICIAN: ALEXANDREA FISHER PROCEDURE(s): BLDVT - BiLat Lower DVT REASON: To rule out DVT ORDER NUMBER(s): [id number], ACCESSION NUMBER(s): [id number] CLINICAL HISTORY: To rule out DVT history of DVT TECHNIQUE: Color and duplex doppler imaging of the bilateral lower extremity veins was performed. Vessel compression if possible was also performed. WID: COMPARISON: None FINDINGS: Right Lower Extremity: Right common femoral vein: Normal compressibility and flow. Right femoral vein: Normal compressibility and flow. Right popliteal vein: Normal compressibility and flow. Proximal calf veins are normally compressible. Left Lower Extremity: Left common femoral vein: Normal compressibility and flow. Left femoral vein: Normal compressibility and flow. Left popliteal vein: Normal compressibility and flow. Proximal calf veins are normally compressible. IMPRESSION: NO SONOGRAPHIC EVIDENCE FOR DEEP VENOUS THROMBOSIS IN THE BILATERAL LOWER EXTREMITY VEINS. ATED BY: BRENDA SWAIN MD DICTATED DATE/TIME: 12/20/232311 SIGNED BY: BRENDA SWAIN MD SIGNED DATE/TIME: 12/20/232311 CC: [place] [address] Ph: [phone] DIAGNOSTIC IMAGING Diagnostic Imaging Report : [id number] Signed PATIENT: SANDOVAL MATA ACCT: [id number] UNIT: [id number] : 1965 LOC: ER ROOM / BED: / AGE / SEX: 58 / F ADM STATUS: REG ER SERVICE 1552 ORDERING PHYSICIAN: WAI VALDES DO PROCEDURE(s): ABPL - CT AB PEL WO CON-NO ORAL OR IV REASON: LUQ pain ORDER NUMBER(s): [id number], ACCESSION NUMBER(s): [id number] Exam: CT CT AB PEL WO CON-NO ORAL OR IV History: LUQ pain Comparison Study: None Technique: Multidetector spiral CT of the abdomen and pelvis was performed from lung bases to pubic symphysis. Imaging was performed without IV contrast. Axial, coronal and sagittal multiplanar reformats were obtained from the axial data set by the technologist. Radiation dose : Abdomen/Pelvis: CTDIvol 24.52 mGy, DLP 1321.13 mGy*cm. Findings: Evaluation of solid organs is limited due to lack of intravenous contrast use. Lung Bases: No acute or significant lung base finding. Normal heart size. No pleural or pericardial effusion. Liver: The liver is normal in size. No focal lesions. Gallbladder and biliary Tree: Unremarkable Spleen: Unremarkable Pancreas: There is a mass in the tail of the pancreas measuring up to 23mm. Adrenal Glands: Unremarkable Kidneys: There is a right renal cystic lesion measuring up to 31 mm. No hydronephrosis or nephrolithiasis. Left kidney appears unremarkable. Bladder: Grossly unremarkable for degree of distention. Bowel: The stomach is grossly normal in appearance. Small bowel and colon are normal in caliber and distribution. The appendix is not visualized; however, no secondary findings of acute appendicitis identified. Ascites: Absent Lymphadenopathy: No mesenteric, retroperitoneal or periportal lymphadenopathy. Abdominal wall and Mesentery: Unremarkable. Vasculature: The visualized abdominal aorta is normal in size and caliber. Evaluation of abdominal and pelvic vessels is limited due to lack of intravenous contrast. Pelvic Organs: Unremarkable Musculoskeletal: No aggressive focal bony lesions, acute fractures or dislocation. IMPRESSION: 1. No acute abdominal or pelvic findings. Mass in the region of the tail of the pancreas measuring up to 23 mm could represent a splenule or pancreatic mass. Right renal cystic lesion measuring up to 31 mm. These both could be evaluated with CT or MRI of the abdomen with contrast. Radiation optimization: All CT scans at this facility use at least one of these dose optimization techniques: Automated exposure control mA and/or kV adjustment per patient size (includes targeted exams where dose is matched to clinical indication) or iterative reconstruction. HS:Y ATED BY: WALTER MEDRANO MD DICTATED DATE/TIME: 12/20/231651 SIGNED BY: WALTER MEDRANO MD SIGNED DATE/TIME: 12/20/231651 CC: Condition at Discharge: Good Final Diagnosis/Problems List Intractable abdominal pain with vomiting Pancreatic/splenic mass Uncontrolled type 2 diabetes mellitus, hemoglobin A1c 7.7 Right renal cyst without hydronephrosis Hyperchloremia Discharge Disposition: Home Discharge Instruct/Medications Diet: Cardiac 2g Na,low cholest Activity: No Restrictions, As Tolerated Follow Up/Referral: Follow up with the PCP within 1 week of the discharge, for the evaluation of the abdominal mass(pancreas/spleen), and uncontrolled diabetes Follow up with the discharge [facility] within 1 week after discharge Discharge Statement: "Patient was advised to return to the ER or call 911 if any headaches, dizziness, shortness of breath, chest pain, abdominal pain, bleeding, fevers, or worsening of medical condition. Patient was counseled about treatment plan, medications, possible side effects, patientverbalized understanding. All questions were answered to the best of my ability. This discharge took greater then 30 minutes in planning, reviewing documentation, counseling the patient, and discussing with other team members." ASSESSMENT ASSESSMENT Assessment Intractable abdominal Date of Service: Dec 21, 2023 Billing Provider: EDGAR LOPEZ MD Common Visit Codes: 53210-OJE/OBS DISCH DAY >30min KIMBERLY DOLL RESDIENT Dec 21, 2023 18:56 EDGAR LOPEZ MD Dec 23, 2023 18:48
[2023-12-24 11:01] LABS: Hepatitis A Total Antibody Positive (Negative)
[2023-12-24 11:02] LABS: Hepatitis B Core Total AB Negative (Negative); Hepatitis B Surface Antibody Negative (Negative); Hepatitis B Surface Antigen Negative (Negative); Hepatitis C Antibody Negative (Negative)
== END 2023-12-21 15:03 | disposition home or self-care (01) | DRG 282 ==
LOC: ER 15:15 → OVERFLOW 22:00
PROVIDERS: ADMIT Internal Medicine; ATTEND Internal Medicine
DX: K86.89 Other specified diseases of pancreas (principal); E87.8 Other disorders of electrolyte and fluid balance, not elsewhere classified; E11.9 Type 2 diabetes mellitus without complications; R16.1 Splenomegaly, not elsewhere classified; N28.1 Cyst of kidney, acquired; Z88.5 Allergy status to narcotic agent; Z86.718 Personal history of other venous thrombosis and embolism
CPT/HCPCS: 36415; 71045; 74176; 80053; 81001; 82962; 83036; 83605; 83690; 84484; 85025; 86301; 86704; 86706; 86708; 86803; 87040; 87086; 87088; 87186; 87340; 93005; 93970; G0378; J1815

== ENCOUNTER 2025-01-23 13:25 | Inpatient (IN) | payer MEDICAID ==
[~2025-01-23] VITALS: Ht 149.9 cm; Wt 94.0 kg
[~2025-01-23 13:25] MED LIST: TRAM50TA2 PO
--- NOTE | 2025-01-23 13:39 | ECG ---
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
[2025-01-23 13:59] LABS: Hematocrit 39.3 % (36.0-46.0); Hemoglobin 13.4 g/dL (12.2-16.2); Mean Corpuscular Hemoglobin 29.8 pg (28.0-32.0); Mean Corpuscular Volume 87.6 fL (80.0-100.0); Nucleated Red Blood Cells % 0.0 %
[2025-01-23 14:08] LABS: Chloride 101 mmol/L (98-107); Potassium 3.8 mmol/L (3.5-5.1); Sodium 136 mmol/L (136-145)
[2025-01-23 14:09] LABS: Anion Gap 9 (5-15); Carbon Dioxide 26 mmol/L (20-31)
[2025-01-23 14:10] LABS: Calcium 9.0 mg/dL (8.7-10.4)
[2025-01-23 14:14] LABS: BUN/Creatinine Ratio 10.6 (10.0-20.0); Blood Urea Nitrogen 11 mg/dL (9-23)
[2025-01-23 14:23] LABS: Glucose 411 mg/dL (74-106)
--- NOTE | 2025-01-23 14:23 | ED.PDOC ---
HPI Comments This is a 60 year old female with past medical history of DVT and diabetes BIB daughter presenting to the ED with chief complaint of chest pain. Patient reports that she has been experiencing left sided chest pain with associated SOB for the past week along with dizziness and nausea starting today. She has never had this previously. She has not tried anything for her symptoms at home. She states she is compliant with her medications at home. She denies any personal or family history of cardiac disease. Patient denies any numbness, weakness, tingling, syncope, or cough. Chief Complaint: Chest Pain Time Seen by MD: 14:21 Primary Care Provider: JIN Reviewed Notes: Nurses Notes, Medications, Allergies Allergies: Coded Allergies: Codeine (Verified Allergy, Unknown, 09/29/23) Home Meds Active Scripts Tramadol Hcl (Tramadol Hcl) 50 Mg Tab, 50 MG PO Q8HP PRN for 7 Days, #21 TAB Prov:SUSAN HOLMAN NP 12/21/23 Information Source: Patient Mode of Arrival: Ambulatory Severity: Moderate Timing: Weeks Duration: Since onset Prehospital treatment: None Location: Chest (L) Quality: Sharp Onset: At Rest Cardiac Risk Factors: Diabetes PE Risk Factors: None Associated Signs and Symptoms: SOB Past Medical History PAST MEDICAL HISTORY: DM Surgical History: Denies all surgeries MAP DRAFTER History: No Pertinent MAP DRAFTER History Family History Family History: Reviewed,noncontributory to illness Social History Smoker: Non-Smoker Alcohol: Denies ETOH Use Drugs: Denies Drug Use Lives In: Home Constitutional: denies: chills, diaphoresis, fatigue, fever, malaise, sweats, weakness, others EENTM: denies: blurred vision, double vision, ear bleeding, ear discharge, ear drainage, ear pain, ear ringing, eye pain, eye redness, hearing loss, mouth pain, mouth swelling, nasal discharge, nose bleeding, nose congestion, nose pain, photophobia, tearing, throat pain, throat swelling, voice changes, others Respiratory: reports: shortness of breath; denies: cough, hemoptysis, orthopnea, SOB at rest, SOB with excertion, stridor, wheezing, others Cardiovascular: reports: chest pain; denies: dizzy spells, diaphoresis, Dyspnea on exertion, edema, irregular heart beat, left arm pain, lightheadedness, palpitations, PND, syncope, others Gastrointestinal: reports: nausea; denies: abdomen distended, abdominal pain, blood streaked bowels, constipated, diarrhea, dysphagia, difficulty swallowing, hematemesis, melena, poor appetite, poor fluid intake, rectal bleeding, rectal pain, vomiting, others Genitourinary: denies: abnormal vagina bleeding, burning, dyspareunia, dysuria, flank pain, frequency, hematuria, incontinence, pain, , vagina discharge, urgency, others Neurological: reports: dizziness; denies: fainting, headache, left sided numbness, left sided weakness, numbness, paresthesia, pre-existing deficit, right sided numbness, right sided weakness, seizure, speech problems, tingling, tremors, weakness, others Musculoskeletal: denies: back pain, gout, joint pain, joint swelling, muscle pain, muscle stiffness, neck pain, others Integumetry: denies: bruises, change in color, change in hair/nails, dryness, laceration, lesions, lumps, rash, wounds, others Allergic/Immunocompromised: denies: Difficulty Healing, Frequent Infections, Hives, Itching, others Hematologic/Lymphatic: denies: anemia, blood clots, easy bleeding, easy bruising, swollen glands, others Endocrine: denies: excessive hunger, excessive sweating, excessive thirst, excessive urination, flushing, intolerance to cold, intolerance to heat, unexplained weight gain, unexplained weight loss, others Psychiatric: denies: anxiety, bipolar disorder, depression, hopeless, panic disorder, schizophrenia, sleepless, suicidal, others All Other Systems: Reviewed and Negative Physical Exam General Appearance: No Apparent Distress, Normal HEENT: Normal ENT Inspection, Pharynx Normal, TMs Normal Neck: Full Range of Motion, Non-Tender, Normal, Normal Inspection Respiratory: Chest Non-Tender, Lungs Clear, No Accessory Muscle Use, No Respiratory Distress, Normal Breath Sounds Cardiovascular: No Edema, No JVD, No Murmur, No Gallop, Normal Peripheral Pulses, Regular Rate/Rhythm Breast Exam: Deferred Gastrointestinal: No Organomegaly, Non Tender, No Pulsatile Mass, Normal Bowel Sounds, Soft Genitalia: Deferred Pelvic: Deferred Rectal: Deferred Extremities: No calf tenderness, Normal capillary refill, Normal inspection, Normal range of motion, Non-tender, No pedal edema Musculoskeletal : Apperance: Normal Neurologic: Alert, mathematical engineering technician II-XII nml as Tested, No Motor Deficits, Normal Affect, Normal Mood, No Sensory Deficits Cerebellar Function: Normal Reflexes: Normal Skin: Dry, Normal Color, Warm Lymphatic: No Adenopathy EKG EKG : Pulse Rate (adult): 101 Cardiac Rhythm: ST Was a procedure done? Was a procedure done?: No CP Differential Dx Differential Diagnosis: Electrolyte Disorder, Heart Failure Differential Diagnosis: CHF Differential Diagnosis: Chest Wall Pain, Costochondritis, Gastritis, Myocardial Infarction, Pericarditis, Pneumonia, Pneumothorax X-Ray, Labs, Meds, VS Vital Signs Date Time Temp Pulse Resp B/P (MAP) Pulse Ox O2 Delivery O2 Flow Rate FiO2 01/23/25 19:11 98.7 79 18 170/93 (118) 99 98.7 01/23/25 15: 83 18 97 Room Air 01/23/25: 98.3 83 18 156/80 (105) 97 98.3 01/23/25 15:25 83 01/23/25 14:32 86 01/23/25 14:23 101 01/23/25 13:43 98.3 97 18 172/82 98 98.3 01/23/25 13:31 101 Lab Test 01/23/25 18:55 01/23/25 16:57 01/23/25 15:34 01/23/25 14:36 Range/Units POC Glucose 250 H 70-106 mg/dl Troponin I High Sensitivity 5 4 </=34 ng/L Urine Color Colorless Yellow Urine Clarity Clear Clear Urine pH 6.0 5.0-9.0 Urine Specific [place] 1.020 1.001-1.035 Urine Protein Negative Negative Urine Ketones 1+ H Negative Urine Blood Negative Negative /uL Urine Nitrite Negative Negative Urine Bilirubin Negative Negative Urine Urobilinogen Normal Negative mg/dL Urine Leukocyte Esterase Trace Negative /uL Urine RBC 1 0 - 4 /hpf Urine Microscopic WBC 2 0-5 /HPF Urine Squamous Epithelial Cells Few <5 /hpf Urine Bacteria None seen None Seen /hpf Urine Glucose 4+ H Normal mg/dL Test 01/23/25 13:42 Range/Units White Blood Count 10.8 4.4-10.8 10^3/uL Red Blood Count 4.49 4.0-5.20 10^6/uL Hemoglobin 13.4 12.2-16.2 g/dL Hematocrit 39.3 36.0-46.0 % Mean Corpuscular Volume 87.6 80.0-100.0 fL Mean Corpuscular Hemoglobin 29.8 28.0-32.0 pg Mean Corpuscular Hemoglobin Concent 34.1 32.0-36.0 g/dL Red Cell Distribution Width 12.9 11.8-14.3 % Platelet Count 178 140-450 10^3/uL Mean Platelet Volume 10.7 6.9-10.8 fL Neutrophils (%) (Auto) 73.9 37.0-80.0 % Lymphocytes (%) (Auto) 14.1 10.0-50.0 % Monocytes (%) (Auto) 8.6 0.0-12.0 % Eosinophils (%) (Auto) 2.4 0.0-7.0 % Basophils (%) (Auto) 1.0 0.0-2.0 % Neutrophils # (Auto) 7.9 1.6-8.6 10 ^3/uL Lymphocytes # (Auto) 1.5 0.4-5.4 10 ^3/uL Monocytes # (Auto) 0.9 0-1.3 10 ^3/uL Eosinophils # (Auto) 0.3 0-0.8 10 ^3/uL Basophils # (Auto) 0.1 0-0.2 10 ^3/uL Nucleated Red Blood Cells 0.0 % Sodium Level 136 136-145 mmol/L Potassium Level 3.8 3.5-5.1 mmol/L Chloride Level 101 98-107 mmol/L Carbon Dioxide Level 26 20-31 mmol/L Anion Gap 9 5-15 Blood Urea Nitrogen 11 9-23 mg/dL Creatinine 1.04 H 0.550-1.02 mg/dL Glomerular Filtration Rate Calc 62 >90 mL/min BUN/Creatinine Ratio 10.6 10.0-20.0 Serum Glucose 411 *H 74-106 mg/dL Calcium Level 9.0 8.7-10.4 mg/dL Troponin I High Sensitivity 5 </=34 ng/L Current Medications Medications (Trade) Dose Ordered Sig/Donnie Route Start Time Stop Time Status Last Admin Sodium Chloride 2,000 ml @ 1,000 mls/hr Q2H ONCE IV 01/23/25 14:45 01/23/25 16:44 DC 01/23/25 16:21 X-Ray, Labs, Meds, VS Comment Patient presenting with chest pain, shortness of breath, dizziness CP nausea for the past few days. Vital signs stable and exam otherwise unremarkable. Patient currently complaining of chest pain, shortness of breath has now resolved. NIHSS 0 on arrival Lab work (CBC, BMP) to evaluate for evidence of severe anemia, electrolyte abnormality including hypokalemia, hyperkalemia, hypernatremia, hyponatremia, hyperglycemia, hypoglycemia, etc. EKG and troponin to evaluate for evidence of arrhythmia, ACS, AMI Chest x-ray to evaluate for pneumonia, pneumothorax, volume overload Re-evaluation Social determinant surveillance affecting care: Social determinants of health that will affect the patient's care: Poor health literacy (additional time provided an explanation) Poor access to outpatient care/followup (provided outpatient resources) Time of 1ST Reevaluation: 15:20 Reevaluation 1ST: Unchanged Patient Education/Counseling: Diagnosis, Treatment Family Education/Counseling: No Family Present SEPSIS Sepsis Screen Date sepsis recognized/suspect: Jan 23, 2025 Time Sepsis recognized/suspect: 1346 Recent Procedure: No On Antibiotic Therapy: No Respiratory Rate >20: No Heart Rate >90: Yes Temp<36 C (96.8 F) or >38.3 C: No SBP <90 or MAP <65 mmHG: No New Acute Mental Status Change: No Is the patient on CPAP, BIPAP,: No Physician Orders Electrocardigram (01/23/25 16:37) Chest Xray 1 View (01/23/25 13:47) Consistent Carb(Ccho)Diabetes (01/24/25 Breakfast) Aspirin Chewable Tablet (01/24/25 10:00) Hydralazine Injection (Apresoline Inject (01/23/25 19:45) Amlodipine Tablet (Norvasc Tablet) (01/24/25 10:00) Losartan Tablet (Cozaar Tablet) (01/24/25 10:00) Glucose Blood (Accu-Chek Comfort Curve T (01/24/25 00:00) Insulin R (Human) (Insulin R) (01/24/25 00:00) Dextrose 50% Syringe (01/23/25 19:45) Allergies (01/23/25 19:33) Code Status (01/23/25 19:33) Sodium Chloride 0.9% (01/23/25 19:45) Oxygen Per Hour (01/23/25 19:33) Ondansetron Hcl (Zofran) (01/23/25 19:45) Docusate Sodium Capsule (Colace Capsule) (01/23/25 19:45) Complete Blood Count (01/24/25 04:00) Comprehensive Metabolic Panel (01/24/25 04:00) Condition: Serious (01/23/25 19:33) Acetaminophen Tablet (Tylenol Tablet) (01/23/25 19:45) Bedrest With Bathroom Privileg (01/23/25 19:33) Sequential Compression Device (01/23/25 ) Vital Signs Date Time Temp Pulse Resp B/P (MAP) Pulse Ox O2 Delivery O2 Flow Rate FiO2 01/23/25 19:11 98.7 79 18 170/93 (118) 99 98.7 01/23/25 15:25 83 18 97 Room Air 01/23/25: 98.3 83 18 156/80 (105) 97 98.3 01/23/25 15:25 83 01/23/25 14:32 86 01/23/25 14:23 101 01/23/25 13:43 98.3 97 18 172/82 98 98.3 01/23/25 13:31 101 Laboratory Tests Test 01/23/25 13:42 White Blood Count 10.8 10^3/uL (4.4-10.8) Medications Medications Dose Ordered Sig/Donnie Route Start Time Stop Time Status Last Admin Dose Admin Sodium Chloride 2,000 ml @ 1,000 mls/hr Q2H ONCE IV 01/23/25 14:45 01/23/25 16:44 DC 01/23/25 16:21 Departure 1 Departure Time of Disposition: 19:07 (On reassessment, patient went to be hyperglycemic 400s with no evidence of DKA. Given 2 L IV fluid with improvement in sugars 230. Patient is still complaining of chest pain and heart score elevated at 4, so will admit for further evaluation.) Impression: Primary Impression: Acute chest pain Additional Impressions: Uncontrolled diabetes mellitus Qualified Codes: E11.65 - Type 2 diabetes mellitus with hyperglycemia Acute dyspnea Dizziness Disposition: ADMITTED INPATIENT Admit to: Tele Condition: Guarded Critical Care Note Critical Care Time?: No Stability Stability form required: No Heart Score Heart Score: Heart Score Response (Comments) Value History Highly Suspicious 2 EKG Normal 0 Age 45-64 1 Risk Factors 1 or 2 risk factors 1 Troponin Normal limit 0 Total 4 I personally scribed for ANIL CAMPBELL MD ([email or web address]) on 01/23/25 at 14:23. Electronically submitted by Cj Andrade ([email or web address]). ANIL CAMPBELL MD Jan 23, 2025 14:23
--- NOTE | 2025-01-23 14:32 | DVH ---
XY CHEST XRAY 1 VIEW, HISTORY: CHEST PAIN COMPARISON: XY CHEST XRAY 1 VIEW on DOS: 12/21/23 XY CHEST XRAY 1 VIEW on DOS: 12/21/23 TECHNICAL DATA: 1 view of the chest was obtained. FINDINGS: Lines and tubes: None Cardiomediastinal silhouette: normal Pulmonary vasculature: normal Lung expansion: normal Lung airspace: normal Lung interstitium: normal Pleura: normal Pneumothorax: no Bones: Unremarkable Other: no IMPRESSION: No acute intrathoracic abnormality.
[2025-01-23] MEDS: SODIUM CHLORIDE 0.9% 2,000 ML IV ONE (16:21)
--- NOTE | 2025-01-23 19:12 | ECG ---
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
[2025-01-23] MEDS ORDERED: DEXTROSE (50%) 50ML SYRG IV PRN (19:45)
[2025-01-23] MEDS: SODIUM CHLORIDE 0.9% 1,000 ML IV SCH (19:45)
[2025-01-23] MEDS ORDERED: DOCUSATE SOD 100 MG CAP PO PRN (19:45)
[2025-01-23] MEDS ORDERED: hydrALAZINE HCL 20 MG/ML VL IV PRN (19:45)
[2025-01-23] MEDS ORDERED: ACETAMINOPHEN 325 MG TAB PO PRN (19:45)
[2025-01-23 20:16] LABS: Urine Protein, UAD Negative (Negative)
--- NOTE | 2025-01-23 21:27 | DVHHP2 ---
History of Present Illness Reason for Visit: Acute chest pain History of Present Illness The patient is a 60-year-old female with past medical history of diabetes mellitus and hypertension who presented to [facility] ED with complaint of chest pain. Patient reports that she has been experiencing intermittent left-sided chest pain rating 5/10 numeric scale, associated with dizziness, nausea, and shortness of breaths for the past 1 week, getting worse today that prompted this visit. Patient was seen and evaluated in the ED, laboratory data shows WBC 10.8, platelets 178, sodium 136, potassium 3.8, BUN 11, creatinine 1.04, GFR 62, glucose 411, calcium 9.0, troponin 5, blood pressure 170/93 trending down to 156/80, heart rate 78, temperature 98.7 F, O2 saturation 99% on room air. Chest x-ray show no acute intrathoracic abnormality. Please see medication orders section in the computer. On my assessment, patient denied chest pain at this moment, no headache, dizziness, diaphoresis, shortness of breaths, no abdominal pain, diarrhea, nausea, vomiting, fever, no chills. Patient was admitted for further evaluation and medical management. Past Medical History DM, HTN Past Surgical History Denies all surgeries Family History Reviewed, noncontributory to the management of this case. Past Social History The patient lives at home, denies smoking, alcohol or illicit drugs abuse. Review of Systems Constitutional: No: Fever, Chills, Sweats, Weakness, Malaise, Other Eyes: No: Pain, Vision change, Conjunctivae inflammation, Eyelid inflammation, Other, Redness ENT: No: Ear pain, Ear discharge, Nose pain, Nose discharge, Nose congestion, Mouth pain, Mouth swelling, Throat pain, Throat swelling, Other Respiratory: Shortness of breath; No: Cough, Dry, SOB with excertion, Wheezing, Hemoptysis, Pleuritic Pain, Sputum, Wheezing, Other Cardiovascular: Chest Pain; No: Palpitations, Orthopnea, Paroxysmal Noc. Dyspnea, Edema, Lt Headedness, Other Gastrointestinal: Nausea; No: Vomiting, Abdominal Pain, Diarrhea, Constipation, Melena, Hematochezia, Other Genitourinary: No Dysuria, No Frequency, No Incontinence, No Hematuria, No Retention, No Other Musculoskeletal: No: other, neck pain, shoulder pain, arm pain, back pain, hand pain, leg pain, foot pain Skin: No: Rash, Lesions, Jaundice, Bruising, Other Neurological: Other (Dizziness); No: Weakness, Numbness, Incoordination, Change in speech, Confusion, Seizures Allergies: Coded Allergies: Codeine (Verified Allergy, Unknown, 09/29/23) Medications Current Medications Medications Dose Ordered Sig/Donnie Route Start Time Stop Time Status Last Admin Dose Admin Aspirin 81 mg DAILY PO 01/24/25 10:00 Hydralazine HCl 10 mg Q6HP PRN IV 01/23/25 19:45 Amlodipine Besylate 5 mg DAILY PO 01/24/25 10:00 Losartan Potassium 25 mg DAILY PO 01/24/25 10:00 Diagnostic Test (Pha) 1 strip Q6HR 01/24/25 00:00 Insulin Human Regular Q6HR SC 01/24/25 00:00 Dextrose 50 ml UD PRN IV 01/23/25 19:45 Sodium Chloride 1,000 ml @ 60 mls/hr [id number] IV 01/23/25 19:45 Ondansetron HCl 4 mg Q4HP PRN IV 01/23/25 19:45 Docusate Sodium 100 mg BIDPRN PRN PO 01/23/25 19:45 Acetaminophen 500 mg Q6HP PRN PO 01/23/25 19:45 Exam Vital Signs Vital Signs Date Time Temp Pulse Resp B/P (MAP) Pulse Ox O2 Delivery O2 Flow Rate FiO2 01/23/25 19:11 98.7 79 18 170/93 (118) 99 98.7 01/23/25 15:25 Room Air General Appearance: Alert, Oriented X3, Cooperative, No acute distress HEENT: Atraumatic, PERRLA, EOMI, Mucous membr. moist/pink Respiratory: Normal air movement Cardiovascular: Regular rate, Normal S1, Normal S2, No murmurs Abdominal: Normal bowel sounds, Soft, No tenderness, No hepatospenomegaly, No masses Extremities: No clubbing, No cyanosis, No edema, Normal pulses, No tenderness/swelling Skin: No rashes, No significant lesion Neuro: Normal speech, Normal tone, Sensation intact, Cranial nerves 3-12 NL, Reflexes 2+, Other (Generalized weakness) Psych/Mental Status: Mental status NL, Mood NL Labs/Xrays Labs Test 01/23/25 18:55 01/23/25 16:57 01/23/25 15:34 01/23/25 13:42 Range/Units POC Glucose 250 H 70-106 mg/dl Troponin I High Sensitivity 5 </=34 ng/L Urine Color Colorless Yellow Urine Clarity Clear Clear Urine pH 6.0 5.0-9.0 Urine Specific [place] 1.020 1.001-1.035 Urine Protein Negative Negative Urine Ketones 1+ H Negative Urine Blood Negative Negative /uL Urine Nitrite Negative Negative Urine Bilirubin Negative Negative Urine Urobilinogen Normal Negative mg/dL Urine Leukocyte Esterase Trace Negative /uL Urine RBC 1 0 - 4 /hpf Urine Microscopic WBC 2 0-5 /HPF Urine Squamous Epithelial Cells Few <5 /hpf Urine Bacteria None seen None Seen /hpf Urine Glucose 4+ H Normal mg/dL White Blood Count 10.8 4.4-10.8 10^3/uL Red Blood Count 4.49 4.0-5.20 10^6/uL Hemoglobin 13.4 12.2-16.2 g/dL Hematocrit 39.3 36.0-46.0 % Mean Corpuscular Volume 87.6 80.0-100.0 fL Mean Corpuscular Hemoglobin 29.8 28.0-32.0 pg Mean Corpuscular Hemoglobin Concent 34.1 32.0-36.0 g/dL Red Cell Distribution Width 12.9 11.8-14.3 % Platelet Count 178 140-450 10^3/uL Mean Platelet Volume 10.7 6.9-10.8 fL Neutrophils (%) (Auto) 73.9 37.0-80.0 % Lymphocytes (%) (Auto) 14.1 10.0-50.0 % Monocytes (%) (Auto) 8.6 0.0-12.0 % Eosinophils (%) (Auto) 2.4 0.0-7.0 % Basophils (%) (Auto) 1.0 0.0-2.0 % Neutrophils # (Auto) 7.9 1.6-8.6 10 ^3/uL Lymphocytes # (Auto) 1.5 0.4-5.4 10 ^3/uL Monocytes # (Auto) 0.9 0-1.3 10 ^3/uL Eosinophils # (Auto) 0.3 0-0.8 10 ^3/uL Basophils # (Auto) 0.1 0-0.2 10 ^3/uL Nucleated Red Blood Cells 0.0 % Sodium Level 136 136-145 mmol/L Potassium Level 3.8 3.5-5.1 mmol/L Chloride Level 101 98-107 mmol/L Carbon Dioxide Level 26 20-31 mmol/L Anion Gap 9 5-15 Blood Urea Nitrogen 11 9-23 mg/dL Creatinine 1.04 H 0.550-1.02 mg/dL Glomerular Filtration Rate Calc 62 >90 mL/min BUN/Creatinine Ratio 10.6 10.0-20.0 Serum Glucose 411 *H 74-106 mg/dL Calcium Level 9.0 8.7-10.4 mg/dL PATIENT: SANDOVAL MATA ACCT: [id number] UNIT: [id number] : 1965 LOC: ER ROOM / BED: / AGE / SEX: 60 / F ADM STATUS: REG ER SERVICE 46 ORDERING PHYSICIAN: ANIL CAMPBELL MD PROCEDURE(s): CXR1 - CHEST XRAY 1 VIEW REASON: CHEST PAIN ORDER NUMBER(s): [id number], ACCESSION NUMBER(s): [id number] XY CHEST XRAY 1 VIEW, HISTORY: CHEST PAIN COMPARISON: XY CHEST XRAY 1 VIEW on DOS: 12/21/23 XY CHEST XRAY 1 VIEW on DOS: 12/21/23 TECHNICAL DATA: 1 view of the chest was obtained. FINDINGS: Lines and tubes: None Cardiomediastinal silhouette: normal Pulmonary vasculature: normal Lung expansion: normal Lung airspace: normal Lung interstitium: normal Pleura: normal Pneumothorax: no Bones: Unremarkable Other: no IMPRESSION: No acute intrathoracic abnormality. SEPSIS Sepsis Screen Date sepsis recognized/suspect: Jan 23, 2025 Time Sepsis recognized/suspect: 1346 Recent Procedure: No On Antibiotic Therapy: No Respiratory Rate >20: No Heart Rate >90: Yes Temp<36 C (96.8 F) or >38.3 C: No SBP <90 or MAP <65 mmHG: No New Acute Mental Status Change: No Is the patient on CPAP, BIPAP,: No Physician Orders Electrocardigram (01/23/25 16:37) Chest Xray 1 View (01/23/25 13:47) Consistent Carb(Ccho)Diabetes (01/24/25 Breakfast) Aspirin Chewable Tablet (01/24/25 10:00) Hydralazine Injection (Apresoline Inject (01/23/25 19:45) Amlodipine Tablet (Norvasc Tablet) (01/24/25 10:00) Losartan Tablet (Cozaar Tablet) (01/24/25 10:00) Glucose Blood (Accu-Chek Comfort Curve T (01/24/25 00:00) Insulin R (Human) (Insulin R) (01/24/25 00:00) Dextrose 50% Syringe (01/23/25 19:45) Allergies (01/23/25 19:33) Code Status (01/23/25 19:33) Sodium Chloride 0.9% (01/23/25 19:45) Oxygen Per Hour (01/23/25:33) Ondansetron Hcl (Zofran) (01/23/25 19:45) Docusate Sodium Capsule (Colace Capsule) (01/23/25 19:45) Complete Blood Count (01/24/25 04:00) Comprehensive Metabolic Panel (01/24/25 04:00) Condition: Serious (01/23/25 19:33) Acetaminophen Tablet (Tylenol Tablet) (01/23/25 19:45) Bedrest With Bathroom Privileg (01/23/25 19:33) Sequential Compression Device (01/23/25 ) Vital Signs Date Time Temp Pulse Resp B/P (MAP) Pulse Ox O2 Delivery O2 Flow Rate FiO2 01/23/25 19:11 98.7 79 18 170/93 (118) 99 98.7 01/23/25 15:25 83 18 97 Room Air 01/23/25: 98.3 83 18 156/80 (105) 97 98.3 01/23/25 15:25 83 01/23/25 14:32 86 01/23/25 14:23 101 01/23/25 13:43 98.3 97 18 172/82 98 98.3 01/23/25 13:31 101 Laboratory Tests Test 01/23/25 13:42 White Blood Count 10.8 10^3/uL (4.4-10.8) Medications Medications Dose Ordered Sig/Donnie Route Start Time Stop Time Status Last Admin Dose Admin Sodium Chloride 2,000 ml @ 1,000 mls/hr Q2H ONCE IV 01/23/25 14:45 01/23/25 16:44 DC 01/23/25 16:21 1,000 MLS/HR Assessment/Plan Assessment/Plan Acute chest pain Acute dyspnea Hypertensive urgency Dizziness Uncontrolled diabetes mellitus Type 2 diabetes mellitus with hyperglycemia Plan 1. Admit to telemetry unit 2. Breathing treatment 3. Pain control management 4. Management of fluids and electrolytes 5. Consultation for hospitalist 6. Diagnostic tests chest x-ray 7. DVT prophylaxis-on aspirin 8. Repeat labs CBC, CMP in a.m. 9. Continue with current medical management 10. Treatment plan discussed with patient and RN. Patient verbalized understanding. Plan discussed with: Patient, Other (RN) My Orders Orders - ANA HAMILTON DNP Procedure Category Date Status Time Consistent DIET 01/24/25 Transmitted Carb(Ccho)Diabetes Breakfast Aspirin Chewable PHA 01/24/25 In Process Tablet 10:00 Hydralazine Injection PHA 01/23/25 In Process (Apresoline Inject 19:45 Amlodipine Tablet PHA 01/24/25 In Process (Norvasc Tablet) 10:00 Losartan Tablet PHA 01/24/25 In Process (Cozaar Tablet) 10:00 Glucose Blood PHA 01/24/25 In Process (Accu-Chek Comfort 00:00 Insulin R (Human) PHA 01/24/25 In Process (Insulin R) 00:00 Dextrose 50% Syringe PHA 01/23/25 In Process 19:45 Allergies DARRYL 01/23/25 In Process 19:33 Code Status CODE 01/23/25 Transmitted 19:33 Sodium Chloride 0.9% PHA 01/23/25 In Process 19:45 Oxygen Per Hour RT 01/23/25 Transmitted 19:33 Ondansetron Hcl PHA 01/23/25 In Process (Zofran) 19:45 Docusate Sodium PHA 01/23/25 In Process Capsule (Colace 19:45 Complete Blood Count LAB 01/24/25 Verified 04:00 Comprehensive LAB 01/24/25 Verified Metabolic Panel 04:00 Condition: Serious DARRYL 01/23/25 In Process 19:33 Acetaminophen Tablet PHA 01/23/25 In Process (Tylenol Tablet) 19:45 Bedrest With Bathroom DARRYL 01/23/25 In Process Privileg 19:33 Sequential DARRYL 01/23/25 In Process Compression Device Problem List: (1) Acute chest pain (2) Acute dyspnea (3) Hypertensive urgency (4) Dizziness (5) Uncontrolled diabetes mellitus (6) Type 2 diabetes mellitus with hyperglycemia Date of Service: Jan 23, 2025 Billing Provider: ANA HAMILTON DNP Common Visit Codes: [id number] INP/OBS CARE (HIGH) ANA HAMILTON DNP Jan 23, 2025 21:27
[2025-01-23] MEDS ORDERED: MORPHINE SULFATE INJ 2 MG/ml SYRG IV PRN (21:30)
[2025-01-23] MEDS ORDERED: NITROGLYCERIN 0.4 MG SL TAB SL PRN (21:30)
[2025-01-23 23:25] VITALS: PULSE 90; RESP 18; O2SAT 97
[2025-01-24] MEDS: InsuLIN REG 1unit/0.01ml Soln (100units/ml) SC SCH
[2025-01-24] MEDS: ACCU-CHEK COMFORT CURVE STRIP VI SCH (00:06)
[2025-01-24 06:46] LABS: Hematocrit 37.0 % (36.0-46.0); Hemoglobin 12.8 g/dL (12.2-16.2); Mean Corpuscular Hemoglobin 30.0 pg (28.0-32.0); Mean Corpuscular Volume 86.6 fL (80.0-100.0); Nucleated Red Blood Cells % 0.0 %
[2025-01-24 07:32] LABS: Alanine Aminotransferase 10 U/L (7-40); Albumin 3.7 g/dL (3.2-4.8); Anion Gap 10 (5-15); BUN/Creatinine Ratio 14.1 (10.0-20.0); Blood Urea Nitrogen 9 mg/dL (9-23); Carbon Dioxide 24 mmol/L (20-31); Potassium 3.5 mmol/L (3.5-5.1); Sodium 142 mmol/L (136-145); Total Protein 6.9 g/dL (5.7-8.2)
[2025-01-24 07:33] LABS: Bilirubin, Total 0.6 mg/dL (0.2-1.0)
[2025-01-24 07:39] LABS: Alkaline Phosphatase 152 U/L (46-116); Calcium 8.5 mg/dL (8.7-10.4); Chloride 108 mmol/L (98-107); Glucose 228 mg/dL (74-106)
[2025-01-24 09:15] VITALS: BP 132/53; PULSE 77; RESP 16; TEMP 99.3; O2SAT 95
[2025-01-24] MEDS: LOSARTAN POTASSIUM 25 MG TAB PO SCH (10:20)
[2025-01-24] MEDS ORDERED: INSU1INJ19 SC (10:45)
[2025-01-24] MEDS ORDERED: SEMA2INJ3 SC (10:45)
[2025-01-24 13:02] VITALS: BP 127/59; PULSE 84; RESP 16; TEMP 98.9; O2SAT 97
--- NOTE | 2025-01-24 14:58 | DVHPN2 ---
Subjective Patient is here for chest pain associated with some shortness of breaths, chest pain is left-sided pleuritic chest pain. Changes from previous H/P or p: No Changes Eyes: No Pain, No Vision change, No Conjunctivae inflammation, No Eyelid inflammation, No Other, No Redness ENT: No Ear pain, No Ear discharge, No Nose pain, No Nose discharge, No Nose congestion, No Mouth pain, No Mouth swelling, No Throat pain, No Throat swelling, No Other Cardiovascular: Chest Pain; No Palpitations, No Orthopnea, No Paroxysmal Noc. Dyspnea, No Edema, No Lt Headedness, No Other Respiratory: No Cough, No Dry; Shortness of breath; No SOB with excertion, No Wheezing, No Hemoptysis, No Pleuritic Pain, No Sputum, No Other Gastrointestinal: Nausea; No Vomiting, No Abdominal Pain, No Diarrhea, No Constipation, No Melena, No Hematochezia, No Other Genitourinary: No Dysuria, No Frequency, No Incontinence, No Hematuria, No Retention, No Other Musculoskeletal: No other, No neck pain, No shoulder pain, No arm pain, No back pain, No hand pain, No leg pain, No foot pain Skin: No Rash, No Lesions, No Jaundice, No Bruising, No Other Objective Vitals Vital Signs Date Time Temp Pulse Resp B/P (MAP) Pulse Ox O2 Delivery O2 Flow Rate FiO2 01/24/25 13:02 98.9 84 16 127/59 (81) 97 98.9 01/24/25 09:46 Room Air* 0 21 Intake/Output Intake and Output 01/24/25 07:00 Intake Total 2000 ml Balance 2000 ml Intake IV Total 2000 ml Exam HEENT pupils are reactive Neck is supple CV is S1-S2 regular rate and rhythm Diminished breath sounds bases GI positive bowel sound 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 Medications Current Medications Medications Dose Ordered Sig/Donnie Route Start Time Stop Time Status Last Admin Dose Admin Aspirin 81 mg DAILY PO 01/24/25 10:00 01/24/25 10:20 81 MG Hydralazine HCl 10 mg Q6HP PRN IV 01/23/25 19:45 Amlodipine Besylate 5 mg DAILY PO 01/24/25 10:00 01/24/25 10:20 5 MG Losartan Potassium 25 mg DAILY PO 01/24/25 10:00 01/24/25 10:20 25 MG Diagnostic Test (Pha) 1 strip Q6HR 01/24/25 00:00 01/24/25 11:58 1 STRIP Insulin Human Regular Q6HR SC 01/24/25 00:00 01/24/25 12:13 6 UNITS Dextrose 50 ml UD PRN IV 01/23/25 19:45 Sodium Chloride 1,000 ml @ 60 mls/hr [id number] IV 01/23/25 19:45 Ondansetron HCl 4 mg Q4HP PRN IV 01/23/25 19:45 Docusate Sodium 100 mg BIDPRN PRN PO 01/23/25 19:45 Acetaminophen 500 mg Q6HP PRN PO 01/23/25 19:45 Nitroglycerin 0.4 mg Q5MINP PRN SL 01/23/25 21:30 Morphine Sulfate 2 mg Q30M PRN IV 01/23/25 21:30 Laboratory Results Laboratory Tests 01/24/25 06:17 Chemistry Test 01/24/25 06:17 Albumin 3.7 g/dL (3.2-4.8) Calcium Level 8.5 mg/dL (8.7-10.4) L Total Protein 6.9 g/dL (5.7-8.2) LFT Test 01/24/25 06:17 Alanine Aminotransferase (ALT) 10 U/L (7-40) Alkaline Phosphatase 152 U/L (46-116) H Aspartate Amino Transferase (AST) 13 U/L (13-40) Total Bilirubin 0.6 mg/dL (0.2-1.0) Urinalysis Test 01/23/25 15:34 Urine Color Colorless (Yellow) Urine Clarity Clear (Clear) Urine pH 6.0 (5.0-9.0) Urine Specific [place] 1.020 (1.001-1.035) Urine Protein Negative (Negative) Urine Ketones 1+ (Negative) H Urine Blood Negative /uL (Negative) Urine Nitrite Negative (Negative) Urine Bilirubin Negative (Negative) Urine Urobilinogen Normal mg/dL (Negative) Urine Leukocyte Esterase Trace /uL (Negative) Urine RBC 1 /hpf (0 - 4) Urine Microscopic WBC 2 /HPF (0-5) Urine Squamous Epithelial Cells Few /hpf (<5) Urine Bacteria None seen /hpf (None Seen) Urine Glucose 4+ mg/dL (Normal) H Assessment/Plan Assessment/Plan 60-year-old female with a known history of diabetes mellitus type 2 insulin- dependent presented to the hospital with a left-sided chest pain found to have 1. Chest pain rule out [place] 2. Pleuritic chest pain 3. Hyperglycemia in the setting of diabetes mellitus type 2 insulin-dependent -check a D-dimer if has a high then we will do the CT angio to rule out PE otherwise patient is clinically stable does not seem to have acute pulmonary embolism -we will get a 2D echo cardiology consultation Plan discussed with: Patient My Orders Orders - VIVEK SUMMERS MD Procedure Category Date Status Time Echo 2d Mode Cardiac US 01/24/25 Logged DOP 13:05 * Cardiology Consult CONS 01/24/25 Transmitted 13:05 Problem List: (1) Uncontrolled diabetes mellitus (2) Acute chest pain Date of Service: Jan 24, 2025 Billing Provider: VIVEK SUMMERS MD Common Visit Codes: [id number] INP/OBS CARE(HIGH) VIVEK SUMMERS MD Jan 24, 2025 14:58
[2025-01-24 16:56] VITALS: BP 137/73; PULSE 87; RESP 16; TEMP 97.9; O2SAT 98
[2025-01-24] MEDS: IOHEXOL 350 MG/ML 100ML IJ ONE (17:06)
[2025-01-24 18:00] VITALS: BP 142/76; PULSE 84; RESP 16; TEMP 98.2; O2SAT 98
--- NOTE | 2025-01-24 18:06 | DVH ---
Bilateral lower extremity venous duplex Clinical History: HISTORY OF DVT Comparison: US BILAT LOWER DVT on DOS: 12/20/23 Technique: Duplex Doppler evaluation of the deep venous systems of both lower extremities from the common femoral veins to the popliteal veins including color Doppler and spectral/pulsed waveform analysis was performed. Findings: RIGHT SIDE: The common femoral vein demonstrates appropriate compressibility and waveform variability. There is compressibility/patency of the great saphenous vein at the proximal thigh. The femoral vein demonstrates appropriate compressibility and waveform variability. The deep femoral vein demonstrates appropriate compressibility and waveform variability. The popliteal vein demonstrates appropriate compressibility and waveform variability. There is normal compressibility at the tibioperoneal trunk. LEFT SIDE: The common femoral vein demonstrates appropriate compressibility and waveform variability. There is compressibility/patency of the great saphenous vein at the proximal thigh. The femoral vein demonstrates appropriate compressibility and waveform variability. The deep femoral vein demonstrates appropriate compressibility and waveform variability. The popliteal vein demonstrates appropriate compressibility and waveform variability. There is normal compressibility at the tibioperoneal trunk. Impression: 1. No right or left femoropopliteal venous thrombosis.
--- NOTE | 2025-01-24 18:55 | DVH ---
COMPUTERIZED TOMOGRAPHIC ANGIOGRAPHY OF THE CHEST WITH INTRAVENOUS CONTRAST REASON FOR EXAM: Chest pain. R/O PE COMPARISON: XY CHEST XRAY 1 VIEW on DOS: 01/23/25, XY CHEST XRAY 1 VIEW on DOS: 12/21/23 TECHNIQUE: The exam was performed on a multidetector spiral scanner. Spiral images were acquired from the thoracic inlet through the adrenal glands, during the bolus intravenous administration of contrast. Multiplanar maximum intensity projection (MIP) images were provided. Radiation optimization: All CT scans at this facility use at least one of these dose optimization techniques: Automated exposure control mA and/or kV adjustment per patient size (includes targeted exams where dose is matched to clinical indication) or iterative reconstruction. CONTRAST ADMINISTERED: 73 mL omnipaque 300 intravenously. RADIATION DOSE: CTDI: 24.25 mGy DLP: 815.29 mGy-cm FINDINGS: There is No significant airspace disease. There is no bronchiectasis or honeycombing. No significant pulmonary nodule or mass is identified. There is no pleural effusion. There is no pneumothorax. The visualized thyroid gland is unremarkable. The heart is not enlarged. There is no pericardial effusion. There is no thoracic aortic aneurysm or dissection. There is no pulmonary arterial filling defect as far as the subsegmental level to suggest pulmonary embolism. No pathologic lymphadenopathy is identified by size criteria. There is a 3.1 cm simple cyst at the superior pole of the right kidney that requires no dedicated follow-up. There is a 2.5 cm indeterminate hypodense lesion at the tip of the pancreatic tail (29 Hounsfield units). No acute osseous abnormality is identified. IMPRESSION: No evidence of pulmonary embolism as far as the subsegmental level. No thoracic aortic aneurysm or dissection. No significant airspace disease. There is a 2.5 cm indeterminate lesion at the tip of the pancreatic tail. Pancreatic MRI without and with contrast is recommended.
[2025-01-24 20:00] VITALS: PULSE 100; PULSE 95; RESP 17; O2SAT 97
[2025-01-24 21:00] VITALS: BP 134/78; PULSE 95; RESP 17; TEMP 98.2; O2SAT 97
[2025-01-25] VITALS (8 sets, daily range): BP systolic 130–147; BP diastolic 74–87; PULSE 84–91; RESP 16–20; TEMP 97.8–98.8; O2SAT 96–98
--- NOTE | 2025-01-25 11:04 | DVHINCON2 ---
DAHIANA GUERRA Rhonda [facility] 01/25/25 1104: Date Seen: Jan 25, [address] Wisdom Reason for Consultation Chest pain History of Present Illness 60-year-old Cambodian speaking female presents to the ED with intermittent chest pressure that began approximately one week ago after lifting and moving a mattress. She describes the discomfort as pressure radiating to the left rib area and back, associated with mild shortness of breath. Pain is worsened by deep inspiration and certain movements. She denies any recent trauma, fever, co ugh, palpitations, dizziness, nausea, or syncope. In the ED, a 12 lead EKG shows normal sinus rhythm without acute ischemic changes, serial troponins are negative, and chest x-ray is normal. On evaluation, she denies active chest pain, dyspnea, or diaphoresis. Past medical history includes diabetes and prior DVT. Past Medical History As stated in HPI Past Surgical History Denies Family History: Patient reports no known family medical history. Family History Reviewed, non-contributory to the management of this case. Social History The patient lives at home, denies smoking, alcohol or illicit drugs abuse. Allergies: Coded Allergies: Codeine (Verified Allergy, Unknown, 09/29/23) Home Meds Reported Medications Semaglutide (Ozempic) 2 Mg/3 Ml Inj, 0.25 MG SC QWEEKLY 01/24/25 Insulin Glargine (Basaglar Kwikpen) 100 Unit/Ml Inj, 18 UNIT SC BID 01/24/25 Review of Systems Constitutional: No symptom reported Ears, Nose, & Throat: No symptom reported Eyes: No symptom reported Neurological: No symptoms reported Pulmonary/Respiratory: No symptom reported Cardiovascular: Chest pain Gastrointestinal: No symptom reported Genitourinary: No symptom reported Musculoskeletal: No symptom reported Skin: No symptom reported Psychiatric: No symptom reported Endocrine: No symptom reported Hemotologic/Lymphatic: No symptom reported Vital Signs Vital Signs Date Time Temp Pulse Resp B/P (MAP) Pulse Ox O2 Delivery O2 Flow Rate FiO2 01/25/25 09:28 138/75 01/25/25 08:00 84 20 96 Room Air* 0 21 01/25/25 05:00 98.3 98.3 Physical Exam INITIAL VITAL SIGNS: Reviewed by me GENERAL: Alert and interactive. No acute distress. HEAD: Head is normocephalic and atraumatic. EYES: EOMI, PERRL. No scleral icterus. No conjunctival injection. ENT: Moist mucous membranes. NECK: Supple, No masses, Full range of motion. RESPIRATORY: No tachypnea. Clear breath sounds bilaterally. No wheezing, rales, rhonchi. CV: Regular rate and rhythm. No murmurs, rubs, or gallops. GI/: Active bowel sounds, soft, nondistended, nontender. No guarding. No rebound. No masses. No CVA tenderness. INTEGUMENTARY: Warm and dry. No obvious rashes. NEUROLOGIC: Alert and oriented. Face is symmetric. Speech is normal. Moves all extremities equally. Labs/Diagnostic Data Labs Test 01/25/25 05:23 01/24/25 15:05 01/24/25 06:17 01/23/25 16:57 Range/Units POC Glucose 136 H 70-106 mg/dl D-Dimer, Quantitative 3.68 H 0.0-0.49 mg/L FEU White Blood Count 10.7 4.4-10.8 10^3/uL Red Blood Count 4.27 4.0-5.20 10^6/uL Hemoglobin 12.8 12.2-16.2 g/dL Hematocrit 37.0 36.0-46.0 % Mean Corpuscular Volume 86.6 80.0-100.0 fL Mean Corpuscular Hemoglobin 30.0 28.0-32.0 pg Mean Corpuscular Hemoglobin Concent 34.7 32.0-36.0 g/dL Red Cell Distribution Width 13.2 11.8-14.3 % Platelet Count 190 140-450 10^3/uL Mean Platelet Volume 10.5 6.9-10.8 fL Neutrophils (%) (Auto) 64.9 37.0-80.0 % Lymphocytes (%) (Auto) 21.8 10.0-50.0 % Monocytes (%) (Auto) 7.6 0.0-12.0 % Eosinophils (%) (Auto) 4.6 0.0-7.0 % Basophils (%) (Auto) 1.1 0.0-2.0 % Neutrophils # (Auto) 6.9 1.6-8.6 10 ^3/uL Lymphocytes # (Auto) 2.3 0.4-5.4 10 ^3/uL Monocytes # (Auto) 0.8 0-1.3 10 ^3/uL Eosinophils # (Auto) 0.5 0-0.8 10 ^3/uL Basophils # (Auto) 0.1 0-0.2 10 ^3/uL Nucleated Red Blood Cells 0.0 % Sodium Level 142 # 136-145 mmol/L Potassium Level 3.5 3.5-5.1 mmol/L Chloride Level 108 H 98-107 mmol/L Carbon Dioxide Level 24 20-31 mmol/L Anion Gap 10 5-15 Blood Urea Nitrogen 9 9-23 mg/dL Creatinine 0.64 # 0.550-1.02 mg/dL Glomerular Filtration Rate Calc 101 >90 mL/min BUN/Creatinine Ratio 14.1 10.0-20.0 Serum Glucose 228 H 74-106 mg/dL Calcium Level 8.5 L 8.7-10.4 mg/dL Total Bilirubin 0.6 0.2-1.0 mg/dL Aspartate Amino Transferase (AST) 13 13-40 U/L Alanine Aminotransferase (ALT) 10 7-40 U/L Alkaline Phosphatase 152 H 46-116 U/L Total Protein 6.9 5.7-8.2 g/dL Albumin 3.7 3.2-4.8 g/dL Troponin I High Sensitivity 5 </=34 ng/L Test 01/23/25 15:34 Range/Units Urine Color Colorless Yellow Urine Clarity Clear Clear Urine pH 6.0 5.0-9.0 Urine Specific [place] 1.020 1.001-1.035 Urine Protein Negative Negative Urine Ketones 1+ H Negative Urine Blood Negative Negative /uL Urine Nitrite Negative Negative Urine Bilirubin Negative Negative Urine Urobilinogen Normal Negative mg/dL Urine Leukocyte Esterase Trace Negative /uL Urine RBC 1 0 - 4 /hpf Urine Microscopic WBC 2 0-5 /HPF Urine Squamous Epithelial Cells Few <5 /hpf Urine Bacteria None seen None Seen /hpf Urine Glucose 4+ H Normal mg/dL PROCEDURE(s): CXR1 - CHEST XRAY 1 VIEW REASON: CHEST PAIN ORDER NUMBER(s): [id number], ACCESSION NUMBER(s): [id number] XY CHEST XRAY 1 VIEW, HISTORY: CHEST PAIN COMPARISON: XY CHEST XRAY 1 VIEW on DOS: 12/21/23 XY CHEST XRAY 1 VIEW on DOS: 12/21/23 TECHNICAL DATA: 1 view of the chest was obtained. FINDINGS: Lines and tubes: None Cardiomediastinal silhouette: normal Pulmonary vasculature: normal Lung expansion: normal Lung airspace: normal Lung interstitium: normal Pleura: normal Pneumothorax: no Bones: Unremarkable Other: no IMPRESSION: No acute intrathoracic abnormality. Assessment Likely Atypical chest pain Chest pain to rule out CAD Pulmonary embolism, ruled out Hypertension DM 2 hx of DVT Obesity Plan/Recommendation (Dr. Romano ): * HEART score 4---Scheduled for adenosine stress test on 01/26/25 * Echocardiogram reveals EF 65% * Monitor blood pressure * Monitor for chest pain Possibly atypical chest pain, pain is pleuritic and reproducible with movement, likely musculoskeletal strain from heavy lifting. Normal EKG, negative serial troponins, and normal chest x-ray. However heart score is 4 which is moderate risk, warrants further cardiac evaluation. This medical document was created using an electronic medical record system with voice recognition software and computerized dictation system. Although this document has been carefully reviewed, there might still be some phonetic and typographical errors. Occasional wrong-word or ``sound-alike substitutions may have occurred due to the inherent limitations of voice recognition software. These areas are purely typographical due to imperfections of the software programs and do not reflect any compromise in the patient's medical care. Please read the chart carefully and recognize, using context, where these substitutions have occurred. Plan discussed with: Patient Plan discussed with: Patient NYHA Physical activity limitations: Class1(None)absent sob, Date of Service: Jan 25, 2025 Billing Provider: TIN ROMANO MD Cardiology Common Codes: NOT BILLABLE Cardiology Consultation Codes: [id number] CONSULT <45MIN TIN ROMANO MD 01/25/25 1235: Family History: Patient reports no known family medical history. 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
[2025-01-25 11:47] LABS: Triglycerides 123 mg/dL (< 150)
[2025-01-25 11:49] LABS: Cholesterol 143 mg/dL (< 200)
[2025-01-25 11:50] LABS: HDL Cholesterol 31 mg/dL (40-59)
--- NOTE | 2025-01-25 11:59 | DVHSR ---
APPROVED REPORT EXAM: Two-dimensional and M-mode echocardiogram with Doppler and color Doppler. Blood Pressure: 138/82 mmHg INDICATION Chest Pain RISK FACTORS Obesity: Height: 4'11", Weight: 202 DIMENSIONS LVDd 4.1 (3.8-5.7cm) LA (2D) 3.8 (1.9-4.0cm) Aortic Root 2.9 (2.0-3.7cm) LVDs 2.9 (2.5-4.0cm) LA (MM) (1.9-4.0cm) Aortic Cusp Exc 1.7 (1.5-2.0cm) EF (%) 60.0 (55-70%) Rt. Atrium 3.4 (1.9-4.0cm) Asc. Aorta cm IVSd 0.9 (0.7-1.1cm) RV (D) 3.4 (1.8-2.4cm) PWd 1.0 (0.7-1.1cm) Mitral Valve Mitral Mitral Stenosis E wave 0.96m/s MV Mean GR. mmHg A wave 0.96m/s MV Peak GR. mmHg E/A ratio 1.0 2D MVA cm2 DECEL Time 192ms PRESS 1/2 Time ms Aortic Valve Aortic Valve Aortic Stenosis V1 1.09m/s AO Mean GR. 6mmHg V2 1.66m/s AO Peak GR. 11mmHg LVOT Diameter 1.8 (1.8-2.4cm) Doppler EMILY 1.67cm2 Pulmonic Valve V2 1.18m/s Tricuspid Valve TR Velocity 2.64m/s RVSP 31mmHg Conclusion lvef 65% by visual estimate normal rv functoin left atrium enlarge no severe valve abnormalities noted
--- NOTE | 2025-01-25 16:08 | DVHPN2 ---
Subjective Patient denies any chest pain but currently scheduled for Lexiscan stress test in a.m.. Changes from previous H/P or p: No Changes Eyes: No Pain, No Vision change, No Conjunctivae inflammation, No Eyelid inflammation, No Other, No Redness ENT: No Ear pain, No Ear discharge, No Nose pain, No Nose discharge, No Nose congestion, No Mouth pain, No Mouth swelling, No Throat pain, No Throat swelling, No Other Cardiovascular: Chest Pain; No Palpitations, No Orthopnea, No Paroxysmal Noc. Dyspnea, No Edema, No Lt Headedness, No Other Respiratory: No Cough, No Dry; Shortness of breath; No SOB with excertion, No Wheezing, No Hemoptysis, No Pleuritic Pain, No Sputum, No Other Gastrointestinal: Nausea; No Vomiting, No Abdominal Pain, No Diarrhea, No Constipation, No Melena, No Hematochezia, No Other Genitourinary: No Dysuria, No Frequency, No Incontinence, No Hematuria, No Retention, No Other Musculoskeletal: No other, No neck pain, No shoulder pain, No arm pain, No back pain, No hand pain, No leg pain, No foot pain Skin: No Rash, No Lesions, No Jaundice, No Bruising, No Other Objective Vitals Vital Signs Date Time Temp Pulse Resp B/P (MAP) Pulse Ox O2 Delivery O2 Flow Rate FiO2 01/25/25 09:28 138/75 01/25/25 08:00 84 20 96 Room Air* 0 21 01/25/25 05:00 98.3 98.3 Intake/Output Intake and Output 01/25/25 07:00 Intake Total 1445 ml Output Total 450 ml Balance 995 ml Intake Oral 1445 ml Output Urine Total 450 ml # Voids 1 Exam HEENT pupils are reactive Neck is supple CV is S1-S2 regular rate and rhythm Diminished breath sounds bases GI positive bowel sound Extremity no edema 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 Medications Current Medications Medications Dose Ordered Sig/Donnie Route Start Time Stop Time Status Last Admin Dose Admin Aspirin 81 mg DAILY PO 01/24/25 10:00 01/25/25 09:27 81 MG Hydralazine HCl 10 mg Q6HP PRN IV 01/23/25 19:45 Amlodipine Besylate 5 mg DAILY PO 01/24/25 10:00 01/25/25 09:28 5 MG Losartan Potassium 25 mg DAILY PO 01/24/25 10:00 01/25/25 09:27 25 MG Diagnostic Test (Pha) 1 strip Q6HR 01/24/25 00:00 01/25/25 12:22 1 STRIP Insulin Human Regular Q6HR SC 01/24/25 00:00 01/25/25 12:25 9 UNITS Dextrose 50 ml UD PRN IV 01/23/25 19:45 Sodium Chloride 1,000 ml @ 60 mls/hr [id number] IV 01/23/25 19:45 01/25/25 05:15 60 MLS/HR Ondansetron HCl 4 mg Q4HP PRN IV 01/23/25 19:45 Docusate Sodium 100 mg BIDPRN PRN PO 01/23/25 19:45 Nitroglycerin 0.4 mg Q5MINP PRN SL 01/23/25 21:30 Morphine Sulfate 2 mg Q30M PRN IV 01/23/25 21:30 Atorvastatin Calcium 40 mg HS PO 01/25/25 22:00 Tramadol HCl 50 mg Q8HP PRN PO 01/25/25 15:00 UNV Laboratory Results Laboratory Tests 01/24/25 06:17 Lipid panel Test 01/25/25 11:22 Cholesterol Level 143 mg/dL (< 200) HDL Cholesterol 31 mg/dL (40-59) L Triglycerides Level 123 mg/dL (< 150) HgA1c, TSH Test 01/25/25 11:22 Hemoglobin A1c 12.2 % A1C (<5.7) H Thyroid Stimulating Hormone (TSH) 1.11 uIU/mL (0.55-4.78) Urinalysis Test 01/23/25 15:34 Urine Color Colorless (Yellow) Urine Clarity Clear (Clear) Urine pH 6.0 (5.0-9.0) Urine Specific [place] 1.020 (1.001-1.035) Urine Protein Negative (Negative) Urine Ketones 1+ (Negative) H Urine Blood Negative /uL (Negative) Urine Nitrite Negative (Negative) Urine Bilirubin Negative (Negative) Urine Urobilinogen Normal mg/dL (Negative) Urine Leukocyte Esterase Trace /uL (Negative) Urine RBC 1 /hpf (0 - 4) Urine Microscopic WBC 2 /HPF (0-5) Urine Squamous Epithelial Cells Few /hpf (<5) Urine Bacteria None seen /hpf (None Seen) Urine Glucose 4+ mg/dL (Normal) H Assessment/Plan Assessment/Plan 60-year-old female with a known history of diabetes mellitus type 2 insulin- dependent presented to the hospital with a left-sided chest pain found to have 1. Chest pain rule out [place] , scheduled for Cardiolite stress test in a.m. 2. Pleuritic chest pain, no evidence of PE 3. Pancreatic tail mass, consider CT/MRI after the Lexiscan stress test 3. Hyperglycemia in the setting of diabetes mellitus type 2 insulin-dependent ,-patient is currently scheduled for Cardiolite stress test in a.m., we will follow up Cardiology recommendations. Plan discussed with: Patient My Orders Orders - VIVEK SUMMERS MD Procedure Category Date Status Time Tramadol Hcl (Ultram) PHA 01/25/25 Pending 15:00 Date of Service: Jan 25, 2025 Billing Provider: VIVEK SUMMERS MD Common Visit Codes: [id number] INP/OBS CARE(HIGH) VIVEK SUMMERS MD Jan 25, 2025 16:08
[2025-01-25] MEDS: ATORVASTATIN 20 MG TAB PO SCH (21:55)
[2025-01-26] VITALS (8 sets, daily range): BP systolic 133–149; BP diastolic 73–87; PULSE 78–91; RESP 16–19; TEMP 97.7–98.7; O2SAT 96–97
[2025-01-26] MEDS: REGADENOSON 0.4 MG/5 ML SYRG IV ONE ×2 (09:24)
--- NOTE | 2025-01-26 11:54 | DVHSR ---
APPROVED REPORT Exam: Nuclear Stress Test BMI: 0 Stress Test Details HR Max Heart Rate (APMHR): 160.756675 bpm Target HR (85% APMHR): 136.447272 bpm BP ECG Stress ECG Conclusion anterior wall fixed defect could be breast artifact no severe ischemia noted lvef 70% NM EXAM: Myocardial Perfusion REST/STRESS Imaging Protocol: Rest Tc-99m/Stress Tc-99m 1 day Resting Data Rest SPECT myocardial perfusion imaging was performed in supine position 60 minutes following the intravenous injection of 11.0 mCi of Tc-99m Sestamibi. Time of rest injection: 07:15 Date: 01/26/2025 Time of rest imagin:15 Date: 01/26/2025 Administration Route: IV Administration Site: Left AC Pharmacologic Stress Pharmacologic stress test was performed by injecting Regadenoson 0.4 mg IV push followed by the intravenous injection of 26.0 mCi of Tc-99m Sestamibi. Time of stress injection: 09:15 Date: 01/26/2025 Time of stress imagin:15 Date: 01/26/2025 Administration Route: IV Administration Site: Right Arm Gated Stress SPECT was performed 60 minutes after stress injection. The images were gated to evaluate regional wall motion and calculate left ventricular ejection fraction. Stress only was performed in the Supine position. Nuclear Conclusion Nuclear Findings: negative for ischemia anterior wall fixed defect could be breast artifact no severe ischemia noted lvef 70%
--- NOTE | 2025-01-26 12:29 | DVHPN2 ---
Progress Note Date Seen: Jan 26, 2025 Medical Necessity Reason Pt with a Central, PICC or Fol: No Subjective Patient reports: Feels better Objective vital signs Vital Sign Date Time Temp Pulse Resp B/P (MAP) Pulse Ox O2 Delivery O2 Flow Rate FiO2 01/26/25 10:00 142/84 01/26/25 09:00 98.2 86 18 97 98.2 01/26/25 08:00 Room Air* 0 21 Total Intake and Output 01/25/25 01/25/25 01/26/25 15:00 23:00 07:00 Intake Total 400 ml 800 ml 1000 ml Balance 400 ml 800 ml 1000 ml medications Current Medications Medications Dose Ordered Sig/Donnie Route Start Time Stop Time Status Last Admin Dose Admin Aspirin 81 mg DAILY PO 01/24/25 10:00 01/26/25 10:00 81 MG Hydralazine HCl 10 mg Q6HP PRN IV 01/23/25 19:45 Amlodipine Besylate 5 mg DAILY PO 01/24/25 10:00 01/26/25 10:00 5 MG Losartan Potassium 25 mg DAILY PO 01/24/25 10:00 01/26/25 10:00 25 MG Diagnostic Test (Pha) 1 strip Q6HR 01/24/25 00:00 01/26/25 11:55 1 STRIP Insulin Human Regular Q6HR SC 01/24/25 00:00 01/26/25 06:10 2 UNITS Dextrose 50 ml UD PRN IV 01/23/25 19:45 Sodium Chloride 1,000 ml @ 60 mls/hr [id number] IV 01/23/25 19:45 01/25/25 05:15 60 MLS/HR Ondansetron HCl 4 mg Q4HP PRN IV 01/23/25 19:45 Docusate Sodium 100 mg BIDPRN PRN PO 01/23/25 19:45 Nitroglycerin 0.4 mg Q5MINP PRN SL 01/23/25 21:30 Morphine Sulfate 2 mg Q30M PRN IV 01/23/25 21:30 Atorvastatin Calcium 40 mg HS PO 01/25/25 22:00 01/25/25 21:55 40 MG Tramadol HCl 50 mg Q8HP PRN PO 01/25/25 15:00 Examination: GENERAL:Abnormal, HEENT:Abnormal, LUNGS:Abnormal, CVS:Abnormal, ABDOMEN:Abnormal laboratory and microbiology Laboratory Tests 01/24/25 06:17 Test 01/24/25 06:17 Range/Units Serum Glucose 228 H 74-106 mg/dL Problem List/Assessment/Plan Problem List/Assessment/Plan ro ACS totally uncontrolled DM a1c of 12 pancreatic tail lesion? stress mpi shows anterior wall defect, no severe ischemia recommend asa, statin consider additional imaging per notes for pancreas, defer to primary hospitalist group needs aggressive risk factor modifciation, weight loss, and DM control, insulin, etc high risk for future cv events Plan discussed with: Patient Date of Service: Jan 26, 2025 Billing Provider: TIN ROMANO MD Common Visit Codes: NOT BILLABLE TIN ROMANO MD Jan 26, 2025 12:29
--- NOTE | 2025-01-26 17:01 | DVHPN2 ---
Subjective no chest pain Reviewed: H&P Changes from previous H/P or p: No Changes Eyes: No Pain, No Vision change, No Conjunctivae inflammation, No Eyelid inflammation, No Other, No Redness ENT: No Ear pain, No Ear discharge, No Nose pain, No Nose discharge, No Nose congestion, No Mouth pain, No Mouth swelling, No Throat pain, No Throat swelling, No Other Cardiovascular: Chest Pain; No Palpitations, No Orthopnea, No Paroxysmal Noc. Dyspnea, No Edema, No Lt Headedness, No Other Respiratory: No Cough, No Dry; Shortness of breath; No SOB with excertion, No Wheezing, No Hemoptysis, No Pleuritic Pain, No Sputum, No Other Gastrointestinal: Nausea; No Vomiting, No Abdominal Pain, No Diarrhea, No Constipation, No Melena, No Hematochezia, No Other Genitourinary: No Dysuria, No Frequency, No Incontinence, No Hematuria, No Retention, No Other Musculoskeletal: No other, No neck pain, No shoulder pain, No arm pain, No back pain, No hand pain, No leg pain, No foot pain Skin: No Rash, No Lesions, No Jaundice, No Bruising, No Other Objective Vitals Vital Signs Date Time Temp Pulse Resp B/P (MAP) Pulse Ox O2 Delivery O2 Flow Rate FiO2 01/26/25 13:00 98.7 89 16 142/84 (103) 96 98.7 01/26/25 08:00 Room Air* 0 21 Intake/Output Intake and Output 01/26/25 05:00 Intake Total 2200 ml Balance 2200 ml Intake Oral 2200 ml # Voids 5 # Bowel Movements 1 General Appearance: Alert, Oriented X3 HEENT: Atraumatic Lungs: Clear to auscultation Cardiovascular: Regular rate, Normal S1, Normal S2 Medications Current Medications Medications Dose Ordered Sig/Donnie Route Start Time Stop Time Status Last Admin Dose Admin Aspirin 81 mg DAILY PO 01/24/25 10:00 01/26/25 10:00 81 MG Hydralazine HCl 10 mg Q6HP PRN IV 01/23/25 19:45 Amlodipine Besylate 5 mg DAILY PO 01/24/25 10:00 01/26/25 10:00 5 MG Losartan Potassium 25 mg DAILY PO 01/24/25 10:00 01/26/25 10:00 25 MG Diagnostic Test (Pha) 1 strip Q6HR 01/24/25 00:00 01/26/25 11:55 1 STRIP Insulin Human Regular Q6HR SC 01/24/25 00:00 01/26/25 06:10 2 UNITS Dextrose 50 ml UD PRN IV 01/23/25 19:45 Sodium Chloride 1,000 ml @ 60 mls/hr [id number] IV 01/23/25 19:45 01/25/25 05:15 60 MLS/HR Ondansetron HCl 4 mg Q4HP PRN IV 01/23/25 19:45 Docusate Sodium 100 mg BIDPRN PRN PO 01/23/25 19:45 Nitroglycerin 0.4 mg Q5MINP PRN SL 01/23/25 21:30 Morphine Sulfate 2 mg Q30M PRN IV 01/23/25 21:30 Atorvastatin Calcium 40 mg HS PO 01/25/25 22:00 01/25/25 21:55 40 MG Tramadol HCl 50 mg Q8HP PRN PO 01/25/25 15:00 Laboratory Results Laboratory Tests 01/24/25 06:17 Urinalysis Test 01/23/25 15:34 Urine Color Colorless (Yellow) Urine Clarity Clear (Clear) Urine pH 6.0 (5.0-9.0) Urine Specific [place] 1.020 (1.001-1.035) Urine Protein Negative (Negative) Urine Ketones 1+ (Negative) H Urine Blood Negative /uL (Negative) Urine Nitrite Negative (Negative) Urine Bilirubin Negative (Negative) Urine Urobilinogen Normal mg/dL (Negative) Urine Leukocyte Esterase Trace /uL (Negative) Urine RBC 1 /hpf (0 - 4) Urine Microscopic WBC 2 /HPF (0-5) Urine Squamous Epithelial Cells Few /hpf (<5) Urine Bacteria None seen /hpf (None Seen) Urine Glucose 4+ mg/dL (Normal) H Assessment/Plan Assessment/Plan 60-year-old female with a known history of diabetes mellitus type 2 insulin- dependent presented to the hospital with a left-sided chest pain found to have 1. Chest pain rule out [place] , scheduled for Cardiolite stress test in a.m. 2. Pleuritic chest pain, no evidence of PE 3. Pancreatic tail mass, consider CT/MRI after the Lexiscan stress test 3. Hyperglycemia in the setting of diabetes mellitus type 2 insulin-dependent Stress test negative MRI ordered Plan discussed with: Patient My Orders Orders - EDGAR LOPEZ MD Procedure Category Date Status Time Mri Abd & Pelvis W/Wo MRI 01/26/25 Verified Cont 16:58 Date of Service: Jan 26, 2025 Billing Provider: EDGAR LOPEZ MD Common Visit Codes: [id number] INP/OBS CARE(HIGH) EDGAR LOPEZ MD Jan 26, 2025 17:01
[2025-01-27] VITALS (9 sets, daily range): BP systolic 117–156; BP diastolic 55–77; PULSE 71–100; RESP 16–18; TEMP 97.1–98.4; O2SAT 94–97
[2025-01-27] MEDS: GADOTERATE MEG 10 MMOL/20ml INJ (0.5MMOL/ml) IV ONE (08:54)
--- NOTE | 2025-01-27 10:18 | DVH ---
CLINICAL HISTORY: PANC TAIL MASS TECHNIQUE: MRI of the abdomen was performed with and without IV contrast. COMPARISON: CT CT AB PEL WO CON-NO ORAL OR IV on DOS: 12/20/23 FINDINGS: Evaluation is limited due to image degradation secondary to motion. Evaluation is particularly limited on postcontrast images. The spleen, adrenal glands, left kidney, and liver are grossly unremarkable. There are gallstones including a stone at the gallbladder neck with associated gallbladder wall thickening and mild surrounding inflammation. There is a 3 cm right upper pole renal cyst with numerous thin septations. There is a 2.1 cm T2 mildly hyperintense pancreatic tail lesion with no definite concerning postcontrast enhancement. The abdominal aorta is normal in course and caliber. There is no free intraperitoneal fluid. No enlarged lymph node is see n. IMPRESSION: Findings are concerning for acute cholecystitis. 2.1 cm pancreatic tail lesion, difficult to assess due to significant artifact. Mild no definite concerning features are seen, overall appearance is unusual. Therefore, recommend 1-2 month follow-up MRI/MRCP with and without IV contrast once patient condition improves for improved study quality and therefore better evaluation. In right renal lesion discussed below can also be reassessed at that time. 3 cm right renal cystic lesion, not well assessed, at least [place] 2F.
--- NOTE | 2025-01-27 13:19 | DVHINCON2 ---
Consultation - Surgical Date Seen: Jan 27, 2025 Referring Physician Reason for Consultation Acute cholecystitis History of Present Illness History of Present Illness Mrs. Kohli is a 60-year-old female who presented on January 23 with epigastric abdominal pain/chest pain, originally thought it was cardiac in nature, patient received a full cardiac workup without any abnormalities. Per patient pain has been present for the last week, and it gets very aggravated after eating. States that she has had this issue before but never this bad. Denies nausea/vomiting/fever/chills/changes in urinary or stooling habits/acholic stools. Past Medical/Surgical History Past Medical/Surgical History Past medical history diabetes past surgical history denies Family and Social History Family and Social History Family history noncontributory ETOH/T Ob/drugs denies Allergies and medications Allergies: Coded Allergies: Acetaminophen (Verified Allergy, Intermediate, 01/25/25) Codeine (Verified Allergy, Unknown, 09/29/23) Home Meds Reported Medications Semaglutide (Ozempic) 2 Mg/3 Ml Inj, 0.25 MG SC QWEEKLY 01/24/25 Insulin Glargine (Basaglar Kwikpen) 100 Unit/Ml Inj, 18 UNIT SC BID 01/24/25 Review of systems Review of Systems: Deferred Examination Vital signs Vital Signs Date Time Temp Pulse Resp B/P (MAP) Pulse Ox O2 Delivery O2 Flow Rate FiO2 01/27/25 09:00 97.1 71 16 117/66 (83) 96 97.1 01/27/25 07:30 Room Air* 0 21 Laboratory Labs Test 01/27/25 11:03 01/25/25 11:22 01/24/25 15:05 01/24/25 06:17 Range/Units POC Glucose 303 H 70-106 mg/dl Hemoglobin A1c 12.2 H <5.7 % A1C Triglycerides Level 123 < 150 mg/dL Cholesterol Level 143 < 200 mg/dL LDL Cholesterol 94 < 100 mg/dL HDL Cholesterol 31 L 40-59 mg/dL Thyroid Stimulating Hormone (TSH) 1.11 0.55-4.78 uIU/mL D-Dimer, Quantitative 3.68 H 0.0-0.49 mg/L FEU White Blood Count 10.7 4.4-10.8 10^3/uL Red Blood Count 4.27 4.0-5.20 10^6/uL Hemoglobin 12.8 12.2-16.2 g/dL Hematocrit 37.0 36.0-46.0 % Mean Corpuscular Volume 86.6 80.0-100.0 fL Mean Corpuscular Hemoglobin 30.0 28.0-32.0 pg Mean Corpuscular Hemoglobin Concent 34.7 32.0-36.0 g/dL Red Cell Distribution Width 13.2 11.8-14.3 % Platelet Count 190 140-450 10^3/uL Mean Platelet Volume 10.5 6.9-10.8 fL Neutrophils (%) (Auto) 64.9 37.0-80.0 % Lymphocytes (%) (Auto) 21.8 10.0-50.0 % Monocytes (%) (Auto) 7.6 0.0-12.0 % Eosinophils (%) (Auto) 4.6 0.0-7.0 % Basophils (%) (Auto) 1.1 0.0-2.0 % Neutrophils # (Auto) 6.9 1.6-8.6 10 ^3/uL Lymphocytes # (Auto) 2.3 0.4-5.4 10 ^3/uL Monocytes # (Auto) 0.8 0-1.3 10 ^3/uL Eosinophils # (Auto) 0.5 0-0.8 10 ^3/uL Basophils # (Auto) 0.1 0-0.2 10 ^3/uL Nucleated Red Blood Cells 0.0 % Sodium Level 142 # 136-145 mmol/L Potassium Level 3.5 3.5-5.1 mmol/L Chloride Level 108 H 98-107 mmol/L Carbon Dioxide Level 24 20-31 mmol/L Anion Gap 10 5-15 Blood Urea Nitrogen 9 9-23 mg/dL Creatinine 0.64 # 0.550-1.02 mg/dL Glomerular Filtration Rate Calc 101 >90 mL/min BUN/Creatinine Ratio 14.1 10.0-20.0 Serum Glucose 228 H 74-106 mg/dL Calcium Level 8.5 L 8.7-10.4 mg/dL Total Bilirubin 0.6 0.2-1.0 mg/dL Aspartate Amino Transferase (AST) 13 13-40 U/L Alanine Aminotransferase (ALT) 10 7-40 U/L Alkaline Phosphatase 152 H 46-116 U/L Total Protein 6.9 5.7-8.2 g/dL Albumin 3.7 3.2-4.8 g/dL Test 01/23/25 16:57 01/23/25 15:34 Range/Units Troponin I High Sensitivity 5 </=34 ng/L Urine Color Colorless Yellow Urine Clarity Clear Clear Urine pH 6.0 5.0-9.0 Urine Specific [place] 1.020 1.001-1.035 Urine Protein Negative Negative Urine Ketones 1+ H Negative Urine Blood Negative Negative /uL Urine Nitrite Negative Negative Urine Bilirubin Negative Negative Urine Urobilinogen Normal Negative mg/dL Urine Leukocyte Esterase Trace Negative /uL Urine RBC 1 0 - 4 /hpf Urine Microscopic WBC 2 0-5 /HPF Urine Squamous Epithelial Cells Few <5 /hpf Urine Bacteria None seen None Seen /hpf Urine Glucose 4+ H Normal mg/dL Examination: GENERAL:Normal (AAO x3), HEENT:Normal (No icterus, neck supple), LUNGS:Normal (Nonlabored breathing with symmetric expansion), ABDOMEN:Normal (Globose, soft, depressible, no scars, epigastric and right upper quadrant tenderness), SKIN:Normal (No jaundice) Problem List/Assessment/Plan Problems: (1) Acute cholecystitis due to biliary calculus (2) Pancreatic mass Assessment and Plan Mrs. Kohli is a 60-year-old female who presents with the acute cholecystitis, initially admitted and thought to be cardiac in nature, cardiac work up completely negative. Patient had a MRI abdomen that shows stones within the gallbladder with surrounding pericholecystic fluid, also incidentally noted is a pancreatic tail mass 2.1 cm in diameter but the MRI had too much artifact to be able to completely delineate the mass. For the acute cholecystitis, I offered laparoscopic cholecystectomy, procedure, risks, benefits, complications, and alternatives were discussed with the patient. Patient would like to proceed with surgery. As far as the pancreatic tail mass, she will need an MRCP to further delineate the mass. 1. On-call to OR tomorrow a.m. for laparoscopic cholecystectomy, possible open 2. NPO at midnight except medications 3. Pain and nausea control 4. A.m. labs 5. As far as the pancreatic mass, patient will need a MRCP. Plan discussed with Plan discussed with: Patient Visit Coding Surgery Date of Service if different f: Jan 27, 2025 Billing Provider: DANIELITO MCKEON MD Surgery Visit Codes: [id number] - INP CONSULT <110 MIN DANIELITO MCKEON MD Jan 27, 2025 13:19
--- NOTE | 2025-01-27 17:34 | DVHPN2 ---
Subjective no chest pain Reviewed: H&P Changes from previous H/P or p: No Changes Eyes: No Pain, No Vision change, No Conjunctivae inflammation, No Eyelid inflammation, No Other, No Redness ENT: No Ear pain, No Ear discharge, No Nose pain, No Nose discharge, No Nose congestion, No Mouth pain, No Mouth swelling, No Throat pain, No Throat swelling, No Other Cardiovascular: Chest Pain; No Palpitations, No Orthopnea, No Paroxysmal Noc. Dyspnea, No Edema, No Lt Headedness, No Other Respiratory: No Cough, No Dry; Shortness of breath; No SOB with excertion, No Wheezing, No Hemoptysis, No Pleuritic Pain, No Sputum, No Other Gastrointestinal: Nausea; No Vomiting, No Abdominal Pain, No Diarrhea, No Constipation, No Melena, No Hematochezia, No Other Genitourinary: No Dysuria, No Frequency, No Incontinence, No Hematuria, No Retention, No Other Musculoskeletal: No other, No neck pain, No shoulder pain, No arm pain, No back pain, No hand pain, No leg pain, No foot pain Skin: No Rash, No Lesions, No Jaundice, No Bruising, No Other Objective Vitals Vital Signs Date Time Temp Pulse Resp B/P (MAP) Pulse Ox O2 Delivery O2 Flow Rate FiO2 01/27/25 13:00 97.3 87 17 156/76 (102) 97 97.3 01/27/25 07:30 Room Air* 0 21 Intake/Output Intake and Output 01/27/25 05:00 Intake Total 2050 ml Balance 2050 ml Intake Oral 2050 ml # Voids 6 # Bowel Movements 2 General Appearance: Alert, Oriented X3 HEENT: Atraumatic Lungs: Clear to auscultation Cardiovascular: Regular rate, Normal S1, Normal S2 Medications Current Medications Medications Dose Ordered Sig/Donnie Route Start Time Stop Time Status Last Admin Dose Admin Aspirin 81 mg DAILY PO 01/24/25 10:00 01/27/25 08:49 81 MG Hydralazine HCl 10 mg Q6HP PRN IV 01/23/25 19:45 Amlodipine Besylate 5 mg DAILY PO 01/24/25 10:00 01/27/25 08:48 5 MG Losartan Potassium 25 mg DAILY PO 01/24/25 10:00 01/27/25 08:48 25 MG Diagnostic Test (Pha) 1 strip Q6HR 01/24/25 00:00 01/27/25 11:28 1 STRIP Insulin Human Regular Q6HR SC 01/24/25 00:00 01/27/25 11:29 12 UNITS Dextrose 50 ml UD PRN IV 01/23/25 19:45 Sodium Chloride 1,000 ml @ 60 mls/hr [id number] IV 01/23/25 19:45 01/27/25 08:48 60 MLS/HR Ondansetron HCl 4 mg Q4HP PRN IV 01/23/25 19:45 Docusate Sodium 100 mg BIDPRN PRN PO 01/23/25 19:45 Nitroglycerin 0.4 mg Q5MINP PRN SL 01/23/25 21:30 Morphine Sulfate 2 mg Q30M PRN IV 01/23/25 21:30 Atorvastatin Calcium 40 mg HS PO 01/25/25 22:00 01/26/25 21:28 40 MG Tramadol HCl 50 mg Q8HP PRN PO 01/25/25 15:00 Laboratory Results Laboratory Tests 01/24/25 06:17 Urinalysis Test 01/23/25 15:34 Urine Color Colorless (Yellow) Urine Clarity Clear (Clear) Urine pH 6.0 (5.0-9.0) Urine Specific [place] 1.020 (1.001-1.035) Urine Protein Negative (Negative) Urine Ketones 1+ (Negative) H Urine Blood Negative /uL (Negative) Urine Nitrite Negative (Negative) Urine Bilirubin Negative (Negative) Urine Urobilinogen Normal mg/dL (Negative) Urine Leukocyte Esterase Trace /uL (Negative) Urine RBC 1 /hpf (0 - 4) Urine Microscopic WBC 2 /HPF (0-5) Urine Squamous Epithelial Cells Few /hpf (<5) Urine Bacteria None seen /hpf (None Seen) Urine Glucose 4+ mg/dL (Normal) H Assessment/Plan Assessment/Plan 60-year-old female with a known history of diabetes mellitus type 2 insulin- dependent presented to the hospital with a left-sided chest pain found to have 1. Chest pain rule out [place] , scheduled for Cardiolite stress test in a.m. 2. Pleuritic chest pain, no evidence of PE 3. Pancreatic tail mass, consider CT/MRI after the Lexiscan stress test 3. Hyperglycemia in the setting of diabetes mellitus type 2 insulin-dependent Stress test negative MRI >acute cholecystitis Consult surgery Plan discussed with: Patient My Orders Orders - EDGAR LOPEZ MD Procedure Category Date Status Time * Surgical Consult CONS 01/27/25 Transmitted Date of Service: Jan 27, 2025 Billing Provider: EDGAR LOPEZ MD Common Visit Codes: [id number] INP/OBS CARE(HIGH) EDGAR LOPEZ MD Jan 27, 2025 17:34
[2025-01-28] VITALS (9 sets, daily range): BP systolic 118–147; BP diastolic 71–74; PULSE 78–109; RESP 13–18; TEMP 97.3–98.4; O2SAT 95–98
[2025-01-28 05:45] LABS: Hematocrit 38.0 % (36.0-46.0); Hemoglobin 12.7 g/dL (12.2-16.2); Mean Corpuscular Hemoglobin 28.9 pg (28.0-32.0); Mean Corpuscular Volume 86.4 fL (80.0-100.0); Nucleated Red Blood Cells % 0.0 %
[2025-01-28 05:59] LABS: INR 1.03 (0.9-1.15); Prothrombin Time 10.9 sec (9.3-11.8)
[2025-01-28 06:04] LABS: Albumin 3.8 g/dL (3.2-4.8); Anion Gap 8 (5-15); BUN/Creatinine Ratio 19.2 (10.0-20.0); Bilirubin, Direct 0.1 mg/dL (<0.3); Bilirubin, Total 0.3 mg/dL (0.2-1.0); Blood Urea Nitrogen 14 mg/dL (9-23); Calcium 9.1 mg/dL (8.7-10.4); Carbon Dioxide 28 mmol/L (20-31); Chloride 105 mmol/L (98-107); Potassium 3.9 mmol/L (3.5-5.1); Sodium 141 mmol/L (136-145); Total Protein 7.3 g/dL (5.7-8.2)
[2025-01-28 06:16] LABS: Alkaline Phosphatase 165 U/L (46-116); Glucose 185 mg/dL (74-106)
[2025-01-28] MEDS ORDERED: LIDOCAINE 2% (LOCAL ANESTH.) PF 5ml SDV ONE (09:14)
[2025-01-28] MEDS ORDERED: GLYCOPYRROLATE 0.2 MG/ML 1ML VIAL ONE (09:14)
[2025-01-28] MEDS ORDERED: PROPOFOL 10 MG/ML 20 ML IV ONE (09:14)
[2025-01-28] MEDS ORDERED: MIDAZOLAM HCL 2MG/2ML 2ml VIAL (1mg/ml) ONE (09:14)
[2025-01-28] MEDS ORDERED: HYDROmorphone HCL 2 MG/ML VL/or syr ONE (09:14)
[2025-01-28] MEDS ORDERED: fentaNYL CITRATE 100 MCG/2 ML VL ONE (09:14)
[2025-01-28] MEDS ORDERED: ONDANSETRON HCL 4 MG/2 ML VIAL ONE (09:14)
[2025-01-28] MEDS: BUPIVACAINE 0.25% INJ 50ML VIAL ONE (10:35)
[2025-01-28] MEDS ORDERED: SUGAMMADEX 200mg/2ml Vial (100MG/ML) IV ONE (11:03)
[2025-01-28] MEDS ORDERED: HYDROcodone-ACET 10/325MG TAB PO PRN (12:30)
[2025-01-28] MEDS ORDERED: ONDANSETRON HCL 4 MG/2 ML VIAL IV PRN (12:30)
[2025-01-28] MEDS: ACCU-CHEK COMFORT CURVE STRIP VI ONE (12:30)
[2025-01-28] MEDS ORDERED: HYDROcodone-ACET 5/325MG TAB PO PRN (12:30)
[2025-01-28] MEDS ORDERED: HYDROmorphone HCL 2 MG/ML VL/or syr IV PRN (12:30)
--- NOTE | 2025-01-28 12:34 | DVHOP2 ---
Operative Report - 2 Report Details Date: 01/28/25 Preop Diagnosis: Acute cholecystitis Postop Diagnosis: Same Surgeon: John Mena MD Anesthesiologist: Dr. Strauss Anesthesia: General Consent: The patient was informed of the risks and benefits of the procedure. These include but are not limited to complications of anesthesia, postoperative infection, incomplete relief of symptoms, recurrence of symptoms, damage to blood vessels, nerves and tendons, deep venous thrombosis, pulmonary embolism and possible need for repeat surgery in the future. Complications: None Estimated Blood Loss: 10 mL Findings: Acutely inflamed and distended gallbladder with thick overlying peritoneum. There were thick omental, small bowel and stomach adhesions to the anterior medial and lateral gallbladder wall. Indications for Surgery: Acute cholecystitis Name of Procedure Performed Laparoscopic cholecystectomy, lysis of adhesions from stomach and small bowel to gallbladder. Please add modifier 22 Procedure Details Procedure Details: Upon arriving to the operating room the patient was transferred to the operating table and placed in the supine position with arms extended. General endotracheal anesthesia was induced. Time-out was observed. Patient was prepped and draped in the standard sterile surgical fashion with chlorhexidine. I then proceeded to make a infraumbilical curvilinear incision and carried the dissection down to fascia. once at the fascia, I then grasped the umbilical stalk with a Ilsa clamp and walked it down to its base. Once at the base of the umbilical stalk I gained entry into the peritoneal cavity utilizing Ta technique. I then placed a 0 Vicryl in [id number] fashion as a fascial retention stitch. I then inserted the Ta cannula and insufflated the peritoneal cavity to 15 mm mmHg with toleration. I then inserted a 10 mm 30 degree laparoscopic, surveyed the entry site, no injuries noted. Patient was then placed in the reverse Trendelenburg [id number] position. I then placed 5 additional working ports under direct vision at the epigastric area, right midclavicular subcostal area, and right flank area. I then directed my attention to the liver and gallbladder, the gallbladder dome was picking out and it was very inflamed and distended with dense omental adhesions. I then started lysing the omental adhesions both bluntly and with cautery until I had enough room to place a grasper at the fundus of the gallbladder. Given the gallbladder distention and had to decompress the gallbladder utilizing the needle syringe, I drain 30 mL of very thick bile. I then grasped the gallbladder at its fundus and retracted cephalad, carefully as it had many adhesions to it. I then kept lysing the thick omental adhesions with cautery until I encountered stomach and small intestine adhesions on the medial anterior and lateral aspect of the gallbladder. I then proceeded to carefully lyse these adhesions sharply, until I was able to identify the infundibulum. I then placed a 2nd retractor in the infundibulum, the gallbladder was extremely scarred in with a very thick overlying peritoneum. Once I grasped the infundibulum I was able to lyse the remaining adhesions sharply to be able to take the bowel and the stomach off of the duct area. I then proceeded to incise the peritoneum on either side at the base of the gallbladder and cavity down to the liver, and thus exposing cholesterol angle. I then proceeded to carefully fully skeletonized Calot triangle until I was able to identify 2 and only 2 structures entering the gallbladder, the cystic duct and cystic artery. Critical view of safety was obtained. Taken down the omental, small bowel, and stomach adhesions, and performing the skeleton cessation of Calot triangle was very cumbersome due to the severity of the adhesions, this part of the surgery took approximately 50 minutes to perform. Then milked the cystic duct for any stones, non felt. I then placed 3 5 mm clips proximal on the cystic duct and 1 distal. I then placed 2 5 mm clips proximal and 1 distal on the artery. Both the cystic duct and cystic artery were transected. I then carefully started freeing off the gallbladder off of the liver bed, and while doing this I encountered a posterior cystic artery branch, that I clipped twice proximal and 1 distal before transecting it. The gallbladder was extremely attached to the liver with dense scar tissue making it very difficult to free of the liver bed. Once the gallbladder was completely off of the liver bed it was placed in the Endo-Catch bag and taken out of the peritoneal cavity under direct vision. I then proceeded to look back at the gallbladder fossa, there were several areas of ooze in the fossa, that were cauterized and hemostasis achieved. While taking the gallbladder off of the liver bed there was some leakage of bile through the previous needle syringe site. Gallbladder fossa under the liver and over the liver was completely and serially irrigated until all effluent was clear. I then proceeded to take a 2nd look at the gallbladder fossa, no bleeding. I then proceeded to look at the clips, the clips were in place and intact. This concluded the intraperitoneal portion of the operation. The 5 mm working ports were taken out under direct vision, no bleeding coming from the abdominal wall. The peritoneal cavity was allowed to fully desufflate. All counts complete and correct at the end the procedure. The previous fascial retention stitch was closed. And all skin sites were closed with 4-0 Monocryl and Dermabond. Patient tolerated the procedure well and was transferred to PACU in stable con dition. Specimen: Gallbladder and contents Condition Stable Disposition 2 Still a Patient JOHN MCKEON MD Jan 28, 2025 12:34
--- NOTE | 2025-01-28 13:17 | DVHPN2 ---
Subjective no chest pain Reviewed: H&P Changes from previous H/P or p: No Changes Eyes: No Pain, No Vision change, No Conjunctivae inflammation, No Eyelid inflammation, No Other, No Redness ENT: No Ear pain, No Ear discharge, No Nose pain, No Nose discharge, No Nose congestion, No Mouth pain, No Mouth swelling, No Throat pain, No Throat swelling, No Other Cardiovascular: Chest Pain; No Palpitations, No Orthopnea, No Paroxysmal Noc. Dyspnea, No Edema, No Lt Headedness, No Other Respiratory: No Cough, No Dry; Shortness of breath; No SOB with excertion, No Wheezing, No Hemoptysis, No Pleuritic Pain, No Sputum, No Other Gastrointestinal: Nausea; No Vomiting, No Abdominal Pain, No Diarrhea, No Constipation, No Melena, No Hematochezia, No Other Genitourinary: No Dysuria, No Frequency, No Incontinence, No Hematuria, No Retention, No Other Musculoskeletal: No other, No neck pain, No shoulder pain, No arm pain, No back pain, No hand pain, No leg pain, No foot pain Skin: No Rash, No Lesions, No Jaundice, No Bruising, No Other Objective Vitals Vital Signs Date Time Temp Pulse Resp B/P (MAP) Pulse Ox O2 Delivery O2 Flow Rate FiO2 01/28/25 09:00 97.3 78 16 132/74 (93) 95 97.3 01/28/25 07:30 Room Air* 0 21 Intake/Output Intake and Output 01/28/25 07:00 Intake Total 520 ml Balance 520 ml Intake Oral 520 ml # Voids 5 General Appearance: Alert, Oriented X3 HEENT: Atraumatic Lungs: Clear to auscultation Cardiovascular: Regular rate, Normal S1, Normal S2 Medications Current Medications Medications Dose Ordered Sig/Donnie Route Start Time Stop Time Status Last Admin Dose Admin Aspirin 81 mg DAILY PO 01/24/25 10:00 01/27/25 08:49 81 MG Hydralazine HCl 10 mg Q6HP PRN IV 01/23/25 19:45 Amlodipine Besylate 5 mg DAILY PO 01/24/25 10:00 01/28/25 08:29 5 MG Losartan Potassium 25 mg DAILY PO 01/24/25 10:00 01/28/25 08:29 25 MG Diagnostic Test (Pha) 1 strip Q6HR 01/24/25 00:00 01/28/25 06:01 1 STRIP Insulin Human Regular Q6HR SC 01/24/25 00:00 01/28/25 06:30 6 UNITS Dextrose 50 ml UD PRN IV 01/23/25 19:45 Sodium Chloride 1,000 ml @ 60 mls/hr [id number] IV 01/23/25 19:45 01/27/25 21:19 60 MLS/HR Ondansetron HCl 4 mg Q4HP PRN IV 01/23/25 19:45 Docusate Sodium 100 mg BIDPRN PRN PO 01/23/25 19:45 Nitroglycerin 0.4 mg Q5MINP PRN SL 01/23/25 21:30 Morphine Sulfate 2 mg Q30M PRN IV 01/23/25 21:30 Atorvastatin Calcium 40 mg HS PO 01/25/25 22:00 01/27/25 21:19 40 MG Tramadol HCl 50 mg Q8HP PRN PO 01/25/25 15:00 Acetaminophen 650 mg Q6HR PO 01/28/25 18:00 UNV Ketorolac Tromethamine 15 mg Q8HR IV 01/28/25 14:00 02/02/25 13:59 Acetaminophen/ Hydrocodone Bitart 1 tab Q4HPRN PRN PO 01/28/25 12:30 UNV Hydromorphone HCl 0.5 mg Q10M PRN IV 01/28/25 12:30 01/28/25 13:11 UNV Oxycodone HCl 5 mg ONCE PRN PO 01/28/25 12:30 UNV Laboratory Results Laboratory Tests 01/28/25 04:38 Chemistry Test 01/28/25 04:38 Albumin 3.8 g/dL (3.2-4.8) Calcium Level 9.1 mg/dL (8.7-10.4) Total Protein 7.3 g/dL (5.7-8.2) Coagulation Test 01/28/25 04:38 Prothrombin Time 10.9 sec (9.3-11.8) Prothrombin Time INR 1.03 (0.9-1.15) LFT Test 01/28/25 04:38 Alanine Aminotransferase (ALT) U/L (7-40) Alkaline Phosphatase 165 U/L (46-116) H Aspartate Amino Transferase (AST) 14 U/L (13-40) Direct Bilirubin 0.1 mg/dL (<0.3) Total Bilirubin 0.3 mg/dL (0.2-1.0) Urinalysis Test 01/23/25 15:34 Urine Color Colorless (Yellow) Urine Clarity Clear (Clear) Urine pH 6.0 (5.0-9.0) Urine Specific [place] 1.020 (1.001-1.035) Urine Protein Negative (Negative) Urine Ketones 1+ (Negative) H Urine Blood Negative /uL (Negative) Urine Nitrite Negative (Negative) Urine Bilirubin Negative (Negative) Urine Urobilinogen Normal mg/dL (Negative) Urine Leukocyte Esterase Trace /uL (Negative) Urine RBC 1 /hpf (0 - 4) Urine Microscopic WBC 2 /HPF (0-5) Urine Squamous Epithelial Cells Few /hpf (<5) Urine Bacteria None seen /hpf (None Seen) Urine Glucose 4+ mg/dL (Normal) H Assessment/Plan Assessment/Plan 60-year-old female with a known history of diabetes mellitus type 2 insulin- dependent presented to the hospital with a left-sided chest pain found to have 1. Chest pain rule out [place] , scheduled for Cardiolite stress test in a.m. 2. Pleuritic chest pain, no evidence of PE 3. Pancreatic tail mass, consider CT/MRI after the Lexiscan stress test 3. Hyperglycemia in the setting of diabetes mellitus type 2 insulin-dependent Stress test negative MRI >acute cholecystitis Consult surgery>going for lap zohreh today Plan discussed with: Patient Date of Service: Jan 28, 2025 Billing Provider: EDGAR LOPEZ MD Common Visit Codes: [id number] INP/OBS CARE(HIGH) EDGAR LOPEZ MD Jan 28, 2025 13:17
[2025-01-28] MEDS: KETOROLAC TROMETH 30 MG/ML 1ML VIAL IV SCH (14:38)
[2025-01-28] MEDS: ONDANSETRON HCL 4 MG/2 ML VIAL IV PRN (14:44)
[2025-01-28] MEDS ORDERED: ACETAMINOPHEN 325 MG TAB PO SCH (18:00)
[2025-01-29] VITALS (7 sets, daily range): BP systolic 101–117; BP diastolic 57–70; PULSE 74–89; RESP 16–18; TEMP 97.8–99; O2SAT 93–99
[2025-01-29 05:23] LABS: Hematocrit 35.0 % (36.0-46.0); Hemoglobin 11.5 g/dL (12.2-16.2); Mean Corpuscular Hemoglobin 28.3 pg (28.0-32.0); Mean Corpuscular Volume 85.8 fL (80.0-100.0); Nucleated Red Blood Cells % 0.0 %
[2025-01-29 05:35] LABS: Albumin 3.7 g/dL (3.2-4.8); Anion Gap 9 (5-15); BUN/Creatinine Ratio 25.0 (10.0-20.0); Bilirubin, Direct 0.1 mg/dL (<0.3); Blood Urea Nitrogen 21 mg/dL (9-23); Calcium 9.1 mg/dL (8.7-10.4); Carbon Dioxide 26 mmol/L (20-31); Chloride 106 mmol/L (98-107); Potassium 4.4 mmol/L (3.5-5.1); Sodium 141 mmol/L (136-145); Total Protein 7.0 g/dL (5.7-8.2)
[2025-01-29 05:45] LABS: Alanine Aminotransferase 88 U/L (7-40); Alkaline Phosphatase 171 U/L (46-116); Bilirubin, Total 0.3 mg/dL (0.2-1.0); Glucose 214 mg/dL (74-106)
--- NOTE | 2025-01-29 10:12 | DVHPN2 ---
Progress Note - Surgical Date Seen: Jan 29, 2025 Post op day Post op day: 1 Subjective Patient reports: Feels better (Patient feeling well this morning, states that her abdominal pain from yesterday's completely gone. Tolerating diet) Review of Systems: Deferred Objective Vital signs Vital Sign Date Time Temp Pulse Resp B/P (MAP) Pulse Ox O2 Delivery O2 Flow Rate FiO2 01/29/25 09:00 98.0 78 16 111/59 (76) 98 98.0 01/29/25 07:30 Nasal Cannula* 2 28 Total Intake and Output 01/28/25 01/28/25 01/29/25 15:00 23:00 07:00 Intake Total 200 ml 100 ml 240 ml Balance 200 ml 100 ml 240 ml Medications Current Medications Medications Dose Ordered Sig/Donnie Route Start Time Stop Time Status Last Admin Dose Admin Aspirin 81 mg DAILY PO 01/24/25 10:00 01/27/25 08:49 81 MG Hydralazine HCl 10 mg Q6HP PRN IV 01/23/25 19:45 Amlodipine Besylate 5 mg DAILY PO 01/24/25 10:00 01/28/25 08:29 5 MG Losartan Potassium 25 mg DAILY PO 01/24/25 10:00 01/28/25 08:29 25 MG Diagnostic Test (Pha) 1 strip Q6HR 01/24/25 00:00 01/29/25 05:24 1 STRIP Insulin Human Regular Q6HR SC 01/24/25 00:00 01/29/25 05:32 6 UNITS Dextrose 50 ml UD PRN IV 01/23/25 19:45 Sodium Chloride 1,000 ml @ 60 mls/hr [id number] IV 01/23/25 19:45 01/29/25 08:54 60 MLS/HR Ondansetron HCl 4 mg Q4HP PRN IV 01/23/25 19:45 01/28/25 14:44 4 MG Docusate Sodium 100 mg BIDPRN PRN PO 01/23/25 19:45 Nitroglycerin 0.4 mg Q5MINP PRN SL 01/23/25 21:30 Morphine Sulfate 2 mg Q30M PRN IV 01/23/25 21:30 Atorvastatin Calcium 40 mg HS PO 01/25/25 22:00 01/28/25 21:12 40 MG Tramadol HCl 50 mg Q8HP PRN PO 01/25/25 15:00 Ketorolac Tromethamine 15 mg Q8HR IV 01/28/25 14:00 02/02/25 13:59 01/28/25 14:38 15 MG Laboratory Laboratory Tests 01/29/25 04:25 Test 01/29/25 04:25 Range/Units Serum Glucose 214 H 74-106 mg/dL Examination: GENERAL:Normal (AAO x3), HEENT:Normal (No icterus, neck supple), LUNGS:Normal (Nonlabored breathing with symmetric expansion), ABDOMEN:Normal (Nondistended, soft, depressible incision sites with overlying skin glue and without surrounding signs of infection, appropriate tenderness), SKIN:Normal (No jaundice) Labs and/or images reviewed: Labs reviewed by me (Leukocytosis likely reactive, mild transaminitis with normal bilirubin due to surgical manipulation of the liver) Problem List/Assessment/Plan Assessment and Plan Mrs. Kohli is a 60-year-old female who presented to the hospital with the acute cholecystitis and serially postop day 1 for laparoscopic cholecystectomy. Patient is doing well this morning, tolerating diet, ambulating. Patient cleared for discharge per surgical standpoint. 1. Cleared for discharge 2. Low-fat diet 3. No lifting over 10 lb for 6 weeks 4. Okay to shower, soap and water okay to run over incision. No bathing and/or swimming for 2 weeks. 5. For baseline pain control utilize Tylenol and/or ibuprofen, please follow deaf/hard of hearing specialist's directions. 6. Recommend [place] 5-325 mg 1 tab p.o. every 6 hours p.r.n. severe pain 7. Recommend MiraLax 1 packet daily p.o. PRN constipation 8. Follow-up at surgery Clinic with Dr. Nieto in 2-4 weeks My Orders My Orders Orders - DANIELITO MCKEON MD Procedure Category Date Status Time Ketorolac Injection PHA 01/28/25 In Process (Toradol Injection) 14:00 Cardiac DIET 01/28/25 Transmitted Diet-2gna,Lofat,Lochol Lunch Plan discussed with Plan discussed with: Patient Visit Coding Surgery Date of Service if different f: Jan 29, 2025 Billing Provider: DANIELITO MCKEON MD Surgery Visit Codes: [id number] INP/OBS CARE(HIGH) DANIELITO MCKEON MD Jan 29, 2025 10:12
[2025-01-29] MEDS ORDERED: AML5T PO (12:09)
[2025-01-29] MEDS ORDERED: ATOR20TA50 PO (12:09)
[2025-01-29] MEDS ORDERED: ASPI-325 PO (12:09)
--- NOTE | 2025-01-29 15:09 | DVHDS2 ---
Discharge Summary Date of Admission Jan 23, 2025 at 21:25 Date of Discharge: Jan 29, 2025 Labs/Diagnostic Data: Laboratory Results Test 01/29/25 05:23 01/29/25 04:25 01/28/25 04:38 01/25/25 11:22 POC Glucose 217 mg/dl (70-106) White Blood Count 13.5 10^3/uL (4.4-10.8) Red Blood Count 4.08 10^6/uL (4.0-5.20) Hemoglobin 11.5 g/dL (12.2-16.2) Hematocrit 35.0 % (36.0-46.0) Mean Corpuscular Volume 85.8 fL (80.0-100.0) Mean Corpuscular Hemoglobin 28.3 pg (28.0-32.0) Mean Corpuscular Hemoglobin Concent 33.0 g/dL (32.0-36.0) Red Cell Distribution Width 13.0 % (11.8-14.3) Platelet Count 242 10^3/uL (140-450) Mean Platelet Volume 10.4 fL (6.9-10.8) Neutrophils (%) (Auto) 79.6 % (37.0-80.0) Lymphocytes (%) (Auto) 13.0 % (10.0-50.0) Monocytes (%) (Auto) 7.0 % (0.0-12.0) Eosinophils (%) (Auto) 0.0 % (0.0-7.0) Basophils (%) (Auto) 0.4 % (0.0-2.0) Neutrophils # (Auto) 10.7 10 ^3/uL (1.6-8.6) Lymphocytes # (Auto) 1.8 10 ^3/uL (0.4-5.4) Monocytes # (Auto) 0.9 10 ^3/uL (0-1.3) Eosinophils # (Auto) 0 10 ^3/uL (0-0.8) Basophils # (Auto) 0.1 10 ^3/uL (0-0.2) Nucleated Red Blood Cells 0.0 % Sodium Level 141 mmol/L (136-145) Potassium Level 4.4 mmol/L (3.5-5.1) Chloride Level 106 mmol/L (98-107) Carbon Dioxide Level 26 mmol/L (20-31) Anion Gap 9 (5-15) Blood Urea Nitrogen 21 mg/dL (9-23) Creatinine 0.84 mg/dL (0.550-1.02) Glomerular Filtration Rate Calc 80 mL/min (>90) BUN/Creatinine Ratio 25.0 (10.0-20.0) Serum Glucose 214 mg/dL (74-106) Calcium Level 9.1 mg/dL (8.7-10.4) Total Bilirubin 0.3 mg/dL (0.2-1.0) Direct Bilirubin 0.1 mg/dL (<0.3) Aspartate Amino Transferase (AST) 156 U/L (13-40) Alanine Aminotransferase (ALT) 88 U/L (7-40) Alkaline Phosphatase 171 U/L (46-116) Total Protein 7.0 g/dL (5.7-8.2) Albumin 3.7 g/dL (3.2-4.8) Prothrombin Time 10.9 sec (9.3-11.8) Prothrombin Time INR 1.03 (0.9-1.15) Hemoglobin A1c 12.2 % A1C (<5.7) Triglycerides Level 123 mg/dL (< 150) Cholesterol Level 143 mg/dL (< 200) LDL Cholesterol 94 mg/dL (< 100) HDL Cholesterol 31 mg/dL (40-59) Thyroid Stimulating Hormone (TSH) 1.11 uIU/mL (0.55-4.78) Test 01/24/25 15:05 01/23/25 16:57 01/23/25 15:34 D-Dimer, Quantitative 3.68 mg/L FEU (0.0-0.49) Troponin I High Sensitivity 5 ng/L (</=34) Urine Color Colorless (Yellow) Urine Clarity Clear (Clear) Urine pH 6.0 (5.0-9.0) Urine Specific [place] 1.020 (1.001-1.035) Urine Protein Negative (Negative) Urine Ketones 1+ (Negative) Urine Blood Negative /uL (Negative) Urine Nitrite Negative (Negative) Urine Bilirubin Negative (Negative) Urine Urobilinogen Normal mg/dL (Negative) Urine Leukocyte Esterase Trace /uL (Negative) Urine RBC 1 /hpf (0 - 4) Urine Microscopic WBC 2 /HPF (0-5) Urine Squamous Epithelial Cells Few /hpf (<5) Urine Bacteria None seen /hpf (None Seen) Urine Glucose 4+ mg/dL (Normal) Other Laboratory Tests 01/29/25 04:25 Brief Hx & Hospital Course: 60-year-old female with past medical history of diabetes mellitus and hypertension who presented to [facility] ED with complaint of chest pain. Patient reports that she has been experiencing intermittent left-sided chest pain rating 5/10 numeric scale, associated with dizziness, nausea, and shortness of breaths for the past 1 week, getting worse today that prompted this visit. Patient was seen and evaluated in the ED, laboratory data shows WBC 10.8, platelets 178, sodium 136, potassium 3.8, BUN 11, creatinine 1.04, GFR 62, glucose 411, calcium 9.0, troponin 5, blood pressure 170/93 trending down to 156/80, heart rate 78, temperature 98.7 F, O2 saturation 99% on room air. Chest x-ray show no acute intrathoracic abnormality. Please see medication orders section in the computer. On my assessment, patient denied chest pain at this moment, no headache, dizziness, diaphoresis, shortness of breaths, no abdominal pain, diarrhea, nausea, vomiting, fever, no chills. Patient was admitted for further evaluation and medical management. During hospital stay cardiac workup negative had lap zohreh due to acute cholecystitis Condition at Discharge: Good Final Diagnosis/Problems List ACUTE CHOLECYSTITIS. CHEST PAIN DUE TO MUSCULOSKELETAL. HTN. Discharge Disposition: Home Discharge Instruct/Medications Diet: Regular Activity: No Restrictions, As Tolerated Follow Up/Referral: general surgeyr in 7 days Medications: amlodipine, aspirin, statin Scheduled Amlodipine Besylate (Norvasc Tablet), 5 MG PO DAILY Aspirin (Aspirin Low Dose), 81 MG PO DAILY Atorvastatin Calcium (Atorvastatin Calcium), 40 MG PO HS Insulin Glargine (Basaglar Kwikpen), 18 UNIT SC BID, (Reported) Semaglutide (Ozempic), 0.25 MG SC QWEEKLY, (Reported) Discharge Statement: "Patient was advised to return to the ER or call 911 if any headaches, dizziness, shortness of breath, chest pain, abdominal pain, bleeding, fevers, or worsening of medical condition. Patient was counseled about treatment plan, medications, possible side effects, patientverbalized understanding. All questions were answered to the best of my ability. This discharge took greater then 30 minutes in planning, reviewing documentation, counseling the patient, and discussing with other team members." ASSESSMENT ASSESSMENT Assessment ACUTE CHOLECYSTITIS. CHEST PAIN DUE TO MUSCULOSKELETAL. HTN. Date of Service: Jan 29, 2025 Billing Provider: EDGAR LOPEZ MD Common Visit Codes: [id number] DISCH DAY >30min EDGAR LOPEZ MD Jan 29, 2025 15:09
== END 2025-01-29 16:11 | disposition home or self-care (01) | DRG 263 ==
LOC: ER 13:25 → OVERFLOW 21:25 → TELE-WESTW 01-24 18:00
PROVIDERS: ADMIT Hospitalist; ATTEND Hospitalist
PROC: 0FT44ZZ Resection of Gallbladder, Percutaneous Endoscopic Approach (ICD-10-PCS; principal; 2025-01-28 10:07)
DX: K81.0 Acute cholecystitis (principal); I16.0 Hypertensive urgency; Z68.41 Body mass index [BMI] 40.0-44.9, adult; E11.65 Type 2 diabetes mellitus with hyperglycemia; I10 Essential (primary) hypertension; E66.9 Obesity, unspecified; K66.0 Peritoneal adhesions (postprocedural) (postinfection); K86.9 Disease of pancreas, unspecified; K82.8 Other specified diseases of gallbladder; R07.89 Other chest pain; Z86.718 Personal history of other venous thrombosis and embolism; Z88.5 Allergy status to narcotic agent; Z79.4 Long term (current) use of insulin
CPT/HCPCS: 36415; 71045; 71275; 74183; 78452; 80048; 80053; 80061; 81001; 82248; 82962; 83036; 84443; 84484; 85025; 85379; 85610; 86850; 86900; 86901; 93005; 93017; 93306; 93970; G0378; J0694; J1100; J1815; J1885; J2003; J2250; J2405; J2704; J3490